=== PATIENT | male | born 1960 | race Hispanic/Latino ===

== ENCOUNTER 2019-03-25 15:55 | Inpatient (IN) | payer OTHER ==
[2019-03-25 19:07] LABS: Anion Gap 20 mmol/L (10-20); BUN (Urea Nitrogen) 93 mg/dL (8.4-25.7); Calc. Creatinine Clearance 0 mL/min (70-130); Calcium 9.2 mg/dL (7.8-10.44); Carbon Dioxide 21 mmol/L (23-31); Chloride 97 mmol/L (98-107); Estimated GFR-MDRD 4; Glucose 80 mg/dL (80-115); Potassium 5.2 mmol/L (3.5-5.1); Sodium 133 mmol/L (136-145)
[2019-03-25] MEDS ORDERED: hydrALAZINE 25 MG TAB ONE (19:36)
[2019-03-25] MEDS ORDERED: Nitroglycerin 2% Ointment 1 INCH/1 GM Packet ONE (20:37)
[2019-03-25] MEDS ORDERED: Acetaminophen 325 MG TAB PO PRN (21:51)
[2019-03-25] MEDS ORDERED: Senokot S 8.6-50 MG TAB PO PRN (21:51)
[2019-03-25] MEDS: cloNIDine 0.1 MG TAB PO PRN (22:35)
[2019-03-25 23:29] VITALS: BMI 29.8
[2019-03-26] MEDS ORDERED: Carvedilol 25 MG TAB PO SCH (01:45)
[2019-03-26] MEDS ORDERED: NIFEdipine XL 90 MG TAB PO SCH (01:45)
--- NOTE | 2019-03-26 06:48 | HP ---
CHIEF COMPLAINT: No hemodialysis access. HISTORY OF PRESENT ILLNESS: The patient is a 59-year-old male who is currently incarcerated, who normally goes to dialysis on Tuesdays, , and Saturdays and has a history of diabetes and hypertension and has had a history of kidney transplant, who presented to the hospital with complaints of having no access for dialysis. The patient states that and according to the notes, when the patient presented today for dialysis, the staff noticed that the left femoral catheter was out. There was also a concern in the note that the tip of the catheter might be missing. The patient states also that he was supposed to get dialysis on ; however, since they changed his shift from second shift to third shift, the patient ended up, I believe refusing dialysis. The patient currently denies any chest pain or shortness of breath. PAST MEDICAL HISTORY: 1. He has BPH. 2. Chronic renal impairment. 3. Diabetes. 4. He has had gout. 5. Hyperlipidemia. 6. Hypertension. 7. Neuropathy. 8. Dialysis, on kidney transplant. PAST SURGICAL HISTORY: He has had an appendectomy and corneal transplant. He has had a kidney transplant. He has had a right knee surgery. He has a left arm fistula that is currently not working. He has also had a dialysis catheter on the left chest wall in the left groin area. SOCIAL HISTORY: He does not smoke. No drug use. Alcohol use; he is currently incarcerated. ALLERGIES: HE IS ALLERGIC TO BEEF-DERIVED PRODUCTS AND PENICILLIN. MEDICATIONS: His medications are as of the following. He is on; 1. Gabapentin 300 mg at bedtime. 2. Carvedilol 6.25 b.i.d. 3. Venlafaxine 75 mg one p.o. daily. 4. Lactulose 30 mL b.i.d. 5. Omeprazole 20 mg daily. 6. Prednisone 5 mg daily. 7. Sensipar one tablet p.o. daily. 8. MiraLax 17 g p.o. daily. 9. Sevelamer 4 tabs t.i.d. FAMILY HISTORY: No history of heart disease or cancer. REVIEW OF SYSTEMS: All negative except for the ones mentioned above in the HPI. PHYSICAL EXAMINATION: VITAL SIGNS: Are as of the following. Initially when he came into the ER, his blood pressure was in the 200s, temperature of 98.1, heart rate 81, respiratory rate 16, oxygen saturation 95% on room air, blood pressure 209/100. GENERAL: He is awake, alert, and oriented x3. Does not appear in distress. HEENT: Normocephalic, atraumatic. No lymphadenopathy noted. Pupils are equal and reactive to light. CV: S1 and S2 present. No murmurs, rubs, or gallops. LUNGS: Clear to auscultation. No rhonchi or wheezes noted. ABDOMEN: Soft and nontender. Bowel sounds are present x2. EXTREMITIES: No edema. Pedal pulses are present x2. NEUROVASCULAR: No focal deficits noted. SKIN: He does have some tattooing, otherwise no significant lesions noted. LABORATORY RESULTS: As of the following. Sodium 133, potassium of 5.2, BUN 93, and creatinine of 13.09. ASSESSMENT AND PLAN: The patient is a 59-year-old male, who presents to the hospital with complaints of having no access for dialysis. 1. End-stage renal disease on dialysis, status post kidney transplant fail. We will get surgery involved to get the patient a dialysis catheter to start dialysis. Also, we will consult Nephrology. 2. Hypertension, uncontrolled. The patient states that he normally was never on any blood pressure medications since he has been on dialysis; however, for the past 2 weeks, he has noticed increased amount of blood pressure and he states that dialysis has helped him significantly. However, I am not sure how true that is. The patient states that he does not take very much significant medications at his present. 3. Deep vein thrombosis prophylaxis. We will put the patient on some subcu heparin. Job ID: [id number]
[2019-03-26] MEDS ORDERED: Loperamide HCl 2 MG CAP PO PRN (07:40)
[2019-03-26] MEDS ORDERED: Sodium Chloride 0.65% Nasal 44 ML BOT EA NARE PRN (07:40)
[2019-03-26] MEDS ORDERED: Temazepam 15 MG CAP PO PRN (07:40)
[2019-03-26] MEDS ORDERED: Cepastat Lozenges 1 LOZ PO PRN (07:40)
[2019-03-26] MEDS ORDERED: hydrALAZINE 20 MG/ML VIAL SLOW IVP PRN (07:40)
[2019-03-26] MEDS ORDERED: Labetalol HCl 100 MG/20 ML VIAL SLOW IVP PRN (07:40)
[2019-03-26] MEDS ORDERED: Ondansetron PF 4 MG/2 ML Vial IVP PRN (07:40)
[2019-03-26] MEDS ORDERED: Calcium Carbonate 500 MG ChewTAB PO PRN (07:40)
[2019-03-26] MEDS ORDERED: Diabetic Tussin 200 MG/10 ML UDCUP PO PRN (07:40)
[2019-03-26] MEDS ORDERED: Artificial Tears 18 DROP/0.9 ML EA EYE PRN (07:40)
[2019-03-26] MEDS ORDERED: Ondansetron ODT 4 MG TAB PO PRN (07:40)
[2019-03-26] MEDS ORDERED: Bisacodyl 10 MG SUPP PR PRN (07:40)
[2019-03-26] MEDS ORDERED: diphenhydrAMINE 25 MG CAP PO PRN (07:40)
[2019-03-26 08:14] LABS: #Eosinphils 0.6 thou/uL (0.0-0.7); #Lymphocytes 2.4 thou/uL (1.20-3.40); #Monocytes 1.1 thou/uL (0.11-0.59); #Neutrophils 7.4 thou/uL (1.40-6.50); %Basophils 0.4 % (0.0-1.0); %Eosinophils 5.2 % (0.0-10.0); %Monocytes 9.4 % (0.0-10.0); Hemoglobin 9.8 g/dL (14.0-18.0); Mean Corpuscular HGB CONC 33.5 g/dL (32.0-36.0); Mean Corpuscular Volume 95.5 fL (78.0-98.0); Mean Platelet Volume 5.7 fL (7.4-10.4); Platelet Count 251 thou/uL (130-400); RBC Distribution Width 12.6 % (11.5-14.5); Red Blood Cell (RBC) Count 3.07 mill/uL (4.70-6.10); White Blood Cell (WBC) Count 11.5 thou/uL (4.8-10.8)
[2019-03-26 08:53] LABS: Hep C IgG Ab Non-Reactive (NonReactive); Hep C Index 0.18 S/CO (0-0.79)
[2019-03-26] MEDS: Cinacalcet HCl 30 MG TAB PO SCH ×2 (09:37→09:46)
[2019-03-26] MEDS: predniSONE 5 MG TAB PO SCH (09:37)
[2019-03-26] MEDS: Loratadine 10 MG TAB PO SCH (09:38)
[2019-03-26] MEDS: Venlafaxine HCl XR 75 MG CAP PO SCH ×2 (09:38→09:46)
[2019-03-26] MEDS: Citrucel 500 MG TAB PO SCH ×2 (09:38→09:46)
[2019-03-26] MEDS: Sevelamer Carbonate 800 MG TAB PO SCH ×4 (09:38→18:05)
[2019-03-26] MEDS: prednisoLONE 1% Ophth Susp 5 ml Bottle EA EYE SCH ×3 (09:45→20:55)
--- NOTE | 2019-03-26 10:06 | PDOC.HOSPP ---
- Subjective Subjective: Patient seen and examined. No new complaints. No overnight events he was angry and did not talk to give any history - Objective Vital Signs & Weight: Vital Signs (12 hours) Temp Pulse Resp BP BP Pulse Ox 03/26/19 07:35 97.6 F 69 18 132/62 95 03/26/19 04:45 72 16 144/76 H 03/26/19 01:51 81 209/100 H 03/26/19 00:00 98.1 F 81 16 209/100 H 95 03/25/19 23:33 96 03/25/19 22:35 240/126 H 03/25/19 22:14 97.3 F L 80 18 240/126 H 96 Weight Weight 202 lb Result Diagrams: 03/26/19 07:55 03/25/19 18:36 EKG Reviewed by me: Yes ROS - Review of Systems All systems: All other ROS were reviewed and found negative. Constitutional: denies: fever, chills, sweats, weakness, malaise, other ENT: denies: ear pain, ear discharge, nose pain, nose discharge, nose congestion , mouth pain, mouth swelling, throat pain, throat swelling, other Respiratory: denies: cough, dry, shortness of breath, hemoptysis, SOB with excertion, pleuritic pain, sputum, wheezing, other Cardiovascular: denies: chest pain, palpitations, orthopnea, paroxysmal noc. dyspnea, edema, light headedness, other Gastrointestinal: denies: nausea, vomitting, abdominal pain, diarrhea, constipation, melena, hematochezia, other Genitourinary: denies: dysuria, frequency, incontinence, hematuria, retention, other Musculoskeletal: denies: neck pain, shoulder pain, arm pain, back pain, hand pain, leg pain, foot pain, other Skin: denies: rash, lesions, denny, bruising, other - Medication Medications: Active Medications Generic Name Dose Route Start Last Admin Trade Name Freq PRN Reason Stop Dose Admin Cinacalcet 30 mg 03/26/19 09:00 03/26/19 09:46 Sensipar PO Not Given DAILY JAYNE Clonidine 0.1 mg 03/25/19 21:52 03/25/19 22:35 Catapres PO 0.1 mg Q4H PRN Administration Blood Pressure Lactulose 20 gm 03/26/19 09:00 03/26/19 09:40 Lactulose PO Not Given BID JAYNE Loratadine 10 mg 03/26/19 09:00 03/26/19 09:38 Claritin PO 10 mg DAILY JAYNE Administration Methylcellulose 1,000 mg 03/26/19 09:00 03/26/19 09:46 Citrucel PO Not Given DAILY JAYNE Prednisolone Acetate 1 drop 03/26/19 09:00 03/26/19 09:45 Econopred Plus 1% Opth Susp EA EYE Not Given TID JAYNE Prednisone 5 mg 03/26/19 09:00 03/26/19 09:37 Prednisone PO 5 mg DAILY JAYNE Administration Sevelamer Carbonate 3,200 mg 03/26/19 08:00 03/26/19 09:42 Renvela PO Not Given TID-WM JAYNE Venlafaxine HCl 75 mg 03/26/19 09:00 03/26/19 09:46 Effexor Xr PO Not Given DAILY JAYNE Hosp A/P (1) Complications, dialysis, catheter, mechanical Code(s): T82.49XA - OTH COMPLICATION OF VASCULAR DIALYSIS CATHETER, INIT ENCNTR Status: Acute (2) Hyperkalemia Code(s): E87.5 - HYPERKALEMIA Status: Acute (3) Hypertensive urgency Code(s): I16.0 - HYPERTENSIVE URGENCY Status: Acute (4) Hyponatremia Code(s): E87.1 - HYPO-OSMOLALITY AND HYPONATREMIA Status: Acute (5) Metabolic acidosis Code(s): E87.2 - ACIDOSIS Status: Acute (6) Anemia of renal disease Code(s): N18.9 - CHRONIC KIDNEY DISEASE, UNSPECIFIED; D63.1 - ANEMIA IN CHRONIC KIDNEY DISEASE Status: Chronic (7) Anxiety and depression Code(s): F41.9 - ANXIETY DISORDER, UNSPECIFIED; F32.9 - MAJOR DEPRESSIVE DISORDER, SINGLE EPISODE, UNSPECIFIED Status: Chronic (8) BPH (benign prostatic hyperplasia) Code(s): N40.0 - BENIGN PROSTATIC HYPERPLASIA WITHOUT LOWER URINRY TRACT SYMP Status: Chronic (9) Diabetes type 2, controlled Code(s): E11.9 - TYPE 2 DIABETES MELLITUS WITHOUT COMPLICATIONS Status: Chronic (10) Dyslipidemia Code(s): E78.5 - HYPERLIPIDEMIA, UNSPECIFIED Status: Chronic (11) ESRD (end stage renal disease) on dialysis Code(s): N18.6 - END STAGE RENAL DISEASE; Z99.2 - DEPENDENCE ON RENAL DIALYSIS Status: Chronic (12) GERD (gastroesophageal reflux disease) Code(s): K21.9 - GASTRO-ESOPHAGEAL REFLUX DISEASE WITHOUT ESOPHAGITIS Status: Chronic (13) H/O kidney transplant Status: Chronic (14) Hypertension Code(s): I10 - ESSENTIAL (PRIMARY) HYPERTENSION Status: Chronic (15) Secondary hyperparathyroidism of renal origin Code(s): N25.81 - SECONDARY HYPERPARATHYROIDISM OF RENAL ORIGIN Status: Chronic - Plan old records reviewed/req nephrology consulted he will need temporary HD catheter placement and permanent dialysis catheter placement medication reviewed as below symptomatic treatment I have reconciled medication repeat labs tomorrow HD as per nephro once access achieved
[2019-03-26] MEDS ORDERED: Acetaminophen 325 MG TAB PO PRN (10:14)
[2019-03-26] MEDS: Folic Acid/Vit B Comp W-C PO SCH (11:21)
[2019-03-26] MEDS: Carvedilol 25 MG TAB PO SCH (17:58)
[2019-03-26] MEDS: cloNIDine 0.1 MG TAB PO PRN (20:23)
[2019-03-26] MEDS: Gabapentin 300 MG CAP PO SCH (20:23)
[2019-03-26] MEDS ORDERED: Prevnar 13-Val Conj/PF 0.5 ML SYRINGE IM ONE (21:00)
[2019-03-27 06:37] LABS: #Basophils 0.1 thou/uL (0.0-0.2); #Eosinphils 0.5 thou/uL (0.0-0.7); #Lymphocytes 2.4 thou/uL (1.20-3.40); #Monocytes 0.8 thou/uL (0.11-0.59); #Neutrophils 5.7 thou/uL (1.40-6.50); %Basophils 0.6 % (0.0-1.0); %Eosinophils 4.8 % (0.0-10.0); %Lymphocytes 25.7 % (21.0-51.0); %Monocytes 8.5 % (0.0-10.0); %Neutrophils 60.4 % (42.0-75.0); Hemoglobin 10.4 g/dL (14.0-18.0); Mean Corpuscular HGB CONC 33.1 g/dL (32.0-36.0); Mean Corpuscular Hemoglobin 32.4 pg (27.0-31.0); Mean Corpuscular Volume 97.9 fL (78.0-98.0); Mean Platelet Volume 5.5 fL (7.4-10.4); Platelet Count 241 thou/uL (130-400); RBC Distribution Width 12.6 % (11.5-14.5); Red Blood Cell (RBC) Count 3.19 mill/uL (4.70-6.10); White Blood Cell (WBC) Count 9.4 thou/uL (4.8-10.8)
[2019-03-27 06:46] LABS: Hemoglobin A1c 4.7 % (4.0-6.0)
[2019-03-27 06:59] LABS: ALT (SGPT) 18 U/L (8-55); AST (SGOT) 25 U/L (5-34); Albumin 3.5 g/dL (3.4-4.8); Alkaline Phosphatase 88 U/L (40-150); Anion Gap 22 mmol/L (10-20); BUN (Urea Nitrogen) 122 mg/dL (8.4-25.7); BUN/Creatinine Ratio 8.06; Bilirubin, Total 0.9 mg/dL (0.2-1.2); Calc. Creatinine Clearance 7 mL/min (70-130); Calcium 9.4 mg/dL (7.8-10.44); Carbon Dioxide 19 mmol/L (23-31); Chloride 96 mmol/L (98-107); Estimated GFR-MDRD 3; Globulin 3.4 g/dL (2.4-3.5); Glucose 91 mg/dL (80-115); Phosphorus 7.2 mg/dL (2.3-4.7); Protein, Total 6.9 g/dL (5.8-8.1); Sodium 131 mmol/L (136-145)
[2019-03-27 07:00] LABS: Phosphorus 7.4 mg/dL (2.3-4.7); Uric Acid 7.7 mg/dL (3.5-7.2)
[2019-03-27] MEDS ORDERED: Carvedilol 25 MG TAB PO SCH (08:00)
[2019-03-27] MEDS: NIFEdipine XL 90 MG TAB PO SCH (08:11)
[2019-03-27] MEDS: Loratadine 10 MG TAB PO SCH (08:11)
[2019-03-27] MEDS: predniSONE 5 MG TAB PO SCH (08:12)
[2019-03-27] MEDS: Carvedilol 25 MG TAB PO SCH ×2 (08:12→18:27)
[2019-03-27] MEDS: Sevelamer Carbonate 800 MG TAB PO SCH ×3 (08:15→18:27)
[2019-03-27] MEDS: Venlafaxine HCl XR 75 MG CAP PO SCH (08:15)
[2019-03-27] MEDS: Citrucel 500 MG TAB PO SCH (08:15)
[2019-03-27] MEDS: Folic Acid/Vit B Comp W-C PO SCH (08:15)
[2019-03-27] MEDS: prednisoLONE 1% Ophth Susp 5 ml Bottle EA EYE SCH ×2 (08:15→16:14)
[2019-03-27] MEDS: Cinacalcet HCl 30 MG TAB PO SCH (08:15)
--- NOTE | 2019-03-27 10:51 | PDOC.HOSPP ---
- Subjective Subjective: Patient seen and examined. No new complaints. No overnight events - Objective Vital Signs & Weight: Vital Signs (12 hours) Temp Pulse Resp BP Pulse Ox 03/27/19 08:11 70 03/27/19 07:59 97.6 F 70 18 201/95 H 98 03/27/19 04:00 97.5 F L 67 16 172/86 H 95 03/26/19 23:30 72 180/87 H Weight Weight 202 lb Result Diagrams: 03/27/19 06:26 03/27/19 06:26 EKG Reviewed by me: Yes ROS - Review of Systems All systems: All other ROS were reviewed and found negative. Constitutional: denies: fever, chills, sweats, weakness, malaise, other ENT: denies: ear pain, ear discharge, nose pain, nose discharge, nose congestion , mouth pain, mouth swelling, throat pain, throat swelling, other Respiratory: denies: cough, dry, shortness of breath, hemoptysis, SOB with excertion, pleuritic pain, sputum, wheezing, other Cardiovascular: denies: chest pain, palpitations, orthopnea, paroxysmal noc. dyspnea, edema, light headedness, other Gastrointestinal: denies: nausea, vomitting, abdominal pain, diarrhea, constipation, melena, hematochezia, other Genitourinary: denies: dysuria, frequency, incontinence, hematuria, retention, other Musculoskeletal: denies: neck pain, shoulder pain, arm pain, back pain, hand pain, leg pain, foot pain, other - Medication Medications: Active Medications Generic Name Dose Route Start Last Admin Trade Name Freq PRN Reason Stop Dose Admin Carvedilol 12.5 mg 03/26/19 17:00 03/27/19 08:12 Coreg PO 12.5 mg BID-WM JAYNE Administration Cinacalcet 30 mg 03/26/19 09:00 03/27/19 08:15 Sensipar PO Not Given DAILY JAYNE Clonidine 0.1 mg 03/25/19 21:52 03/26/19 20:23 Catapres PO 0.1 mg Q4H PRN Administration Blood Pressure Gabapentin 300 mg 03/26/19 21:00 03/26/19 20:23 Neurontin PO Not Given HS JAYNE Hydralazine HCl 10 mg 03/26/19 07:40 03/26/19 15:59 Apresoline SLOW IVP 10 mg Q4H PRN Administration SBP > 180 and HR < 70 Lactulose 20 gm 03/26/19 09:00 03/27/19 08:15 Lactulose PO Not Given BID [facility] Loperamide HCl 2 mg 03/26/19 07:40 03/26/19 15:47 Imodium PO 2 mg PRN PRN Administration Diarrhea/Loose Stools Loratadine 10 mg 03/26/19 09:00 03/27/19 08:11 Claritin PO 10 mg DAILY [facility] Administration Methylcellulose 1,000 mg 03/26/19 09:00 03/27/19 08:15 Citrucel PO Not Given DAILY [facility] Nifedipine 90 mg 03/27/19 09:00 03/27/19 08:11 Procardia Xl PO 90 mg DAILY [facility] Administration Pantoprazole Sodium 40 mg 03/26/19 09:00 03/27/19 08:15 Protonix PO Not Given DAILY [facility] Prednisolone Acetate 1 drop 03/26/19 09:00 03/27/19 08:15 Econopred Plus 1% Opth Susp EA EYE Not Given TID [facility] Prednisone 5 mg 03/26/19 09:00 03/27/19 08:12 Prednisone PO 5 mg DAILY [facility] Administration Sevelamer Carbonate 3,200 mg 03/26/19 08:00 03/27/19 08:15 Renvela PO Not Given TID[facility] Venlafaxine HCl 75 mg 03/26/19 09:00 03/27/19 08:15 Effexor Xr PO Not Given DAILY [facility] Vitamin B Complex/Vit C/Folic Acid 1 tab 03/26/19 09:00 03/27/19 08:15 Nephro-Anil Tablet PO Not Given DAILY [facility] - Exam NAD, awake alert Eye: PERRL, anicteric sclera ENT: normocephalic atraumatic, no oropharyngeal lesions Neck: supple, symmetric, no JVD, no Thyromegaly Heart: RRR, no murmur, no gallops, no rubs, normal peripheral pulses Respiratory: CTAB, no wheezes, no rales, no ronchi, normal chest expansion, no tachypnea, normal percussion Gastrointestinal: soft, non-tender, non-distended, normal bowel sounds, no palpable masses, no hepatomegaly, no splenomegaly, no bruit Extremities: no cyanosis, no clubbing, no edema Skin: normal turgor, no lesions, no rashes Neurological: CN's grossly intact, normal sensation to touch, no weakness, no focal deficits, no new deficit Musculoskeletal: normal tone, normal strength, no muscle wasting Psychiatric: normal affect, normal behavior, A&O x 3 Hosp A/P (1) Complications, dialysis, catheter, mechanical Code(s): T82.49XA - OTH COMPLICATION OF VASCULAR DIALYSIS CATHETER, INIT ENCNTR Status: Acute (2) Hyperkalemia Code(s): E87.5 - HYPERKALEMIA Status: Acute (3) Hypertensive urgency Code(s): I16.0 - HYPERTENSIVE URGENCY Status: Acute (4) Hyponatremia Code(s): E87.1 - HYPO-OSMOLALITY AND HYPONATREMIA Status: Acute (5) Metabolic acidosis Code(s): E87.2 - ACIDOSIS Status: Acute (6) Anemia of renal disease Code(s): N18.9 - CHRONIC KIDNEY DISEASE, UNSPECIFIED; D63.1 - ANEMIA IN CHRONIC KIDNEY DISEASE Status: Chronic (7) Anxiety and depression Code(s): F41.9 - ANXIETY DISORDER, UNSPECIFIED; F32.9 - MAJOR DEPRESSIVE DISORDER, SINGLE EPISODE, UNSPECIFIED Status: Chronic (8) BPH (benign prostatic hyperplasia) Code(s): N40.0 - BENIGN PROSTATIC HYPERPLASIA WITHOUT LOWER URINRY TRACT SYMP Status: Chronic (9) Diabetes type 2, controlled Code(s): E11.9 - TYPE 2 DIABETES MELLITUS WITHOUT COMPLICATIONS Status: Chronic (10) Dyslipidemia Code(s): E78.5 - HYPERLIPIDEMIA, UNSPECIFIED Status: Chronic (11) ESRD (end stage renal disease) on dialysis Code(s): N18.6 - END STAGE RENAL DISEASE; Z99.2 - DEPENDENCE ON RENAL DIALYSIS Status: Chronic (12) GERD (gastroesophageal reflux disease) Code(s): K21.9 - GASTRO-ESOPHAGEAL REFLUX DISEASE WITHOUT ESOPHAGITIS Status: Chronic (13) H/O kidney transplant Status: Chronic (14) Hypertension Code(s): I10 - ESSENTIAL (PRIMARY) HYPERTENSION Status: Chronic (15) Secondary hyperparathyroidism of renal origin Code(s): N25.81 - SECONDARY HYPERPARATHYROIDISM OF RENAL ORIGIN Status: Chronic - Plan old records reviewed/req today pt will get HD access and possible fistula repair medication reviewed as below symptomatic treatment HD after dialysis access
--- NOTE | 2019-03-27 11:28 | ULT ---
Exam: Vein mapping for dialysis access HISTORY: End-stage renal disease. TECHNIQUE: Multiplanar grayscale and color Doppler images were obtained in a bilateral upper extremit y venous ultrasound. Spectral analysis of the Doppler waveforms of the vessels were performed. FINDINGS: The bilateral internal jugular veins and subclavian veins are patent without evidence of th rombus. Right brachial artery 4.7 mm Right radial artery 2.6 mm Right ulnar artery 2.6 mm Left brachial artery 4.3 mm Left radial artery 2.3 mm Left ulnar artery 2.7 mm RIGHT CEPHALIC VEIN in millimeters 4.9 -- Shoulder 3.7 -- Upper arm 4.5 -- Mid upper arm 4.9-- Just proximal to the elbow 1.6 -- Just distal to the elbow 1.2 -- Forearm 2.6 -- Wrist RIGHT BASILIC VEIN in millimeters 5.1 -- Shoulder 3.2 -- Upper arm 1.5 -- Mid upper arm 1.1 -- Just proximal to the elbow 1.2 -- Just distal to the elbow 1.0 -- Forearm 1.0 -- Wrist LEFT CEPHALIC VEIN in millimeters 3.8 -- Shoulder 3.1 -- Upper arm 4.2 -- Mid upper arm 3.0 -- Just proximal to the elbow 1.0 -- Just distal to the elbow 1.1 -- Forearm 0.8 -- Wrist LEFT BASILIC VEIN in millimeters 4.5 -- Shoulder 6.0 -- Upper arm 5.1 -- Mid upper arm 5.7 -- Just proximal to the elbow 4.3 -- Just distal to the elbow 7.5 -- Forearm 8.4 -- Wrist IMPRESSION: Vein mapping for dialysis access as above
--- NOTE | 2019-03-27 11:46 | CON ---
DATE OF CONSULTATION: HISTORY OF PRESENT ILLNESS: Tello Freed is a 59-year-old prisoner, incarcerated for 8 years in [facility]. The patient prior to incarceration had a left arm fistula for dialysis. Subsequently, he underwent renal transplant. He suffered some sort of incident where the fistula had to be ligated. He has suffered rejection of his renal transplant and now has been undergoing dialysis using a catheter. They last placed a catheter in [place] a couple of weeks ago, but he states it fell out. He last dialyzed Wednesday 6 days ago. His hemoglobin is 10 and white count 9. Sodium 131, BUN 122, creatinine 15.3, and potassium 6. He, on admission, had an IV placed in his right AC. Instant report will be submitted. Ultrasound vein mapping has been ordered and is pending. ALLERGIES: PENICILLIN. SOCIAL HISTORY: Tobacco use, none. Alcohol, none even prior to incarceration. MEDICATIONS: 1. Zemplar. 2. Venlafaxine. 3. Prednisone eyedrops. 4. Omeprazole. 5. Prednisone 5 mg a day. 6. Carvedilol 6.25 mg b.i.d. 7. Gabapentin 300 mg at bedtime. 8. Fiber laxatives. 9. Lactulose. 10. Renvela 3200 mg t.i.d. 11. Claritin 10 mg a day. 12. Sensipar 30 mg a day. PAST SURGICAL HISTORY: Left Riri fistula, hemodialysis catheter, renal transplant, ligation of his left fistula, appendectomy, open infraumbilical incision, corneal transplant, and right knee surgery. PAST MEDICAL HISTORY: BPH, end-stage renal disease with renal transplant rejection on dialysis, diabetes mellitus, gout, hyperlipidemia, hypertension, and neuropathy. PHYSICAL EXAMINATION: VITAL SIGNS: 5 feet 9 inches, 202 pounds, 29 BMI, temperature 97.6, pulse 70, and blood pressure 201/95. HEAD, EYES, EARS, NOSE, AND THROAT: Unremarkable. LUNGS: Clear to auscultation. CARDIAC: Regular rate and rhythm. No murmur or gallop. ABDOMEN: Soft, nontender, protuberant, obese. Old scar, infraumbilical, from a ruptured appendicitis appendectomy. EXTREMITIES: Unremarkable. Left wrist scars x2 with soft Riri type fistula, but thrombosed at the arterial origin. LABORATORY DATA: As noted above. ASSESSMENT AND PLAN: 1. End-stage renal disease, dislodged catheter. Apparently, they had to place a groin catheter. We will plan placement of hemodialysis catheter. We will look at his intravenous jugulars, but most likely, he will require femoral vein catheter. We will plan that today since his potassium is 6, we will just place the catheter, allow him to dialyze. If he is still in the hospital, can plan placement of a left arm fistula in the next day or 2. 2. Incarceration. 3. Diabetes. 4. Hypertension. 5. Renal transplant rejection. Job ID: [id number]
[2019-03-27 12:07] LABS: HBSAg Index 0.29 S/CO (0-0.99); Hep B Core Total Ab Non-Reactive (NonReactive); Hep B Core Total Index 0.18 S/CO (0-0.79); Hep B Surf Ag Non-Reactive S/CO (NonReactive); Hep C IgG Ab Non-Reactive (NonReactive); Hep C Index 0.18 S/CO (0-0.79)
[2019-03-27 12:13] LABS: HBSAB Concentration 143.97 mIU/mL; Hep B Surf AB Reactive (NonReactive)
[2019-03-27] MEDS ORDERED: Heparin 10,000 UNITS/1 ML VIAL ONE ×2 (15:00→19:17)
[2019-03-27] MEDS ORDERED: Lidocaine 1% PF 5 ML VIAL ONE (17:09)
[2019-03-27] MEDS ORDERED: PROPOFOL 200 MG/20 ML VIAL ONE (17:09)
[2019-03-27] MEDS ORDERED: Levofloxacin 500 mg/D5W 100 ml Premix Bag ONE (17:18)
[2019-03-27] MEDS ORDERED: Fentanyl 100 MCG/2 ML VIAL ONE ×2 (19:05→20:45)
[2019-03-27] MEDS ORDERED: Lidocaine 2% PF 5 ML VIAL ONE (19:17)
[2019-03-27] MEDS ORDERED: Bupivacaine HCl 0.5%/Epinephrine 1:200,000/PF 30 ml Vial ONE (19:17)
[2019-03-27] MEDS ORDERED: Morphine Sulfate 2 MG/ML SYRINGE SLOW IVP PRN (20:28)
[2019-03-27] MEDS ORDERED: PACU-Morphine 4MG/ML VIAL SLOW IVP PRN (20:28)
[2019-03-27] MEDS ORDERED: Ondansetron HCl/PF 4 MG/2 ML Vial IVP PRN (20:28)
[2019-03-27] MEDS ORDERED: Promethazine HCl 25 MG/ML VIAL IM PRN (20:28)
[2019-03-27] MEDS ORDERED: Promethazine HCl 25 MG/ML VIAL SLOW IVP PRN (20:28)
[2019-03-27] MEDS ORDERED: HYDROmorphone 2 MG/ML VIAL SLOW IVP PRN (20:28)
[2019-03-27] MEDS ORDERED: Promethazine HCl 25 MG/ML VIAL ONE (20:32)
--- NOTE | 2019-03-27 22:47 | OP ---
DATE OF PROCEDURE: 03/27/2019 PREOPERATIVE DIAGNOSES: End-stage renal disease, incarcerated [place], dislodged left femoral vein dialysis catheter, dysfunctional fistula left arm (previous ligation in need of new fistula placement) hyperkalemia. POSTOPERATIVE DIAGNOSES: End-stage renal disease, incarcerated [place], dislodged left femoral vein dialysis catheter, dysfunctional fistula left arm (previous ligation in need of new fistula placement) hyperkalemia, occluded internal jugular veins. PROCEDURES PERFORMED: Attempted ultrasound visualization of both internal jugular veins, but J-wire was not threaded. Right femoral vein hemodialysis catheter cuffed tunneled. Left femoral vein central line (the patient has right AC IV, which we removed immediately). ANESTHESIA: General, local 0.5% Marcaine with epinephrine. DESCRIPTION OF PROCEDURE: The patient was taken to the operating room, where under general anesthesia, neck and chest, groin, thighs, lower abdomen prepared with ChloraPrep and draped in routine fashion. Ultrasound visualized the right and left internal jugular veins. I could cannulate them with trocar catheter, but J-wire was not threaded. The right femoral vein was cannulated with a trocar catheter, as well as left femoral vein. Seldinger technique used to place a triple-lumen catheter in the left femoral vein, secured with 3-0 nylon suture and sterile dressing. Each port aspirated blood and flushed with saline solution. Right femoral vein J-wire entry site was enlarged sharply. Stab incision was made over the anterior and lateral right thigh and using the tunneling device, the femoral vein catheter was tunneled between the 2 incisions, placed in the fabric cuff beneath the skin exit site. Catheter secured with 2 interrupted suture of 3-0 nylon. Small and medium size dilators were placed with J-wire and the femoral vein removed. Dilator and Peel-Away sheath placed over the J-wire into the femoral vein and J-wire and dilator removed. Catheter placed with Peel-Away sheath. Fluoroscopic catheter noted to be in good position. Subcutaneous tissue was approximated with 3-0 Monocryl, skin with subdermal 4-0 Monocryl, and Colt glue and sterile dressings applied. Catheter secured with 2 interrupted sutures of 3-0 nylon. Each port aspirated blood and flushed with saline solution and heparinized saline solution, 1000 units/mL indicating volume of the port. Job ID: [id number]
[2019-03-28] MEDS: HYDROcodone/Acetaminophen 5/325 mg Tablet PO PRN ×2 (01:30→21:34)
[2019-03-28] MEDS: prednisoLONE 1% Ophth Susp 5 ml Bottle EA EYE SCH ×5 (01:30→21:53)
[2019-03-28] MEDS: Gabapentin 300 MG CAP PO SCH ×2 (01:31→21:52)
--- NOTE | 2019-03-28 07:41 | PRG ---
DATE OF SERVICE: 03/28/2019 Tello Freed had a femoral vein hemodialysis cuff tunneled catheter placed last night. He dialyzed last night. I had him scheduled this morning at 0730 to have his left arm fistula revised to a functional fistula. However, the patient refused to sign his consent and refused to come down for surgery, was upset that he was n.p.o. after midnight. Due to his lack of cooperation and OR schedule, he is canceled for surgery today. I would recommend he dialyzed this morning, be transferred back to intermediate today with his fistula as an outpatient on an another day. I will see him as needed. His groin central line can be removed prior to discharge. Job ID: [id number]
[2019-03-28] MEDS: Sevelamer Carbonate 800 MG TAB PO SCH ×3 (08:52→19:37)
[2019-03-28] MEDS: Folic Acid/Vit B Comp W-C PO SCH (08:52)
[2019-03-28] MEDS: Cinacalcet HCl 30 MG TAB PO SCH (08:52)
[2019-03-28] MEDS: Citrucel 500 MG TAB PO SCH (08:52)
[2019-03-28] MEDS: Carvedilol 25 MG TAB PO SCH ×2 (08:52→19:37)
[2019-03-28] MEDS: NIFEdipine XL 90 MG TAB PO SCH (08:53)
[2019-03-28] MEDS: predniSONE 5 MG TAB PO SCH (08:53)
[2019-03-28] MEDS: Venlafaxine HCl XR 75 MG CAP PO SCH (08:53)
[2019-03-28] MEDS: Loratadine 10 MG TAB PO SCH (08:53)
--- NOTE | 2019-03-28 10:47 | CON ---
DATE OF CONSULTATION: REQUESTING PHYSICIAN: Sayra Moncada MD REASON FOR CONSULTATION: Need for dialysis treatment IMPRESSION: 1. End-stage renal disease, on hemodialysis, due to dislodged dialysis access. 2. Hyperkalemia in the context of end-stage renal disease and not been dialyzed. PLAN: 1. No emergent indication for dialysis, therefore, instead of putting a temporary dialysis catheter, we tried to secure a permanent dialysis catheter and possibly long time access. 2. Plan on dialyzing this patient when access is secured and we will modify the dialysis to avoid disequilibrium syndrome. 3. Further management will be dependent on the clinical course. HISTORY OF PRESENT ILLNESS: A 59-year-old incarcerated gentleman who does not have any access to get dialyzed. Therefore, the patient is here to evaluate it and access placed for the need for continued maintenance hemodialysis necessitated this Renal consultation. PAST MEDICAL HISTORY: Significant for end-stage renal disease, BPH, status post renal transplant, diabetes mellitus, dyslipidemia, hypertension. MEDICATIONS: Reviewed and as documented on [employer]. SOCIAL HISTORY: No alcohol. No tobacco. No illicit drug use. ALLERGIES: PENICILLIN. REVIEW OF SYSTEMS: As documented in the body of the history. All other systems were reviewed and found not to be significantly related to present illness. PHYSICAL EXAMINATION: GENERAL: The patient was found not to be in any obvious distress, noted with the following vital signs. VITAL SIGNS: Afebrile, temperature 97.4, pulse 68, respiratory rate 18, saturation 91%, blood pressure 139/74. HEENT: Unremarkable. Moist oral mucosa. NECK: Supple. EXTREMITIES: No peripheral edema. SKIN: No new gross rash. LYMPHATICS: No peripheral lymphadenopathy. SUMMARY: A 59-year-old gentleman with end-stage renal disease, who is in need of access. Thank you for this consultation. We will follow with you. Job ID: [id number]
--- NOTE | 2019-03-28 11:14 | DIS ---
DATE OF ADMISSION: 03/25/2019 DATE OF DISCHARGE: 03/28/2019 PRIMARY CARE PHYSICIAN: [facility] Call Admission. DISCHARGE DISPOSITION: [place]. PRIMARY DISCHARGE DIAGNOSES: 1. Mechanical complication with dialysis catheter. 2. Status post tunneled hemodialysis catheter placement. 3. Hypertensive urgency, resolved. 4. Hyperkalemia due to inadequate excretion through the kidney and inability to get dialysis. 5. Hyponatremia. 6. Metabolic acidosis. SECONDARY DISCHARGE DIAGNOSE: hypertension, history of kidney transplant , gastroesophageal reflux disease; ESRD, on hemodialysis; dyslipidemia; diabetes type 2; benign enlargement of prostate; anxiety and depression, and anemia of renal disease. PRIMARY PROCEDURE/OPERATION: The patient required tunneled hemodialysis catheter placement in the groin. Central line placement, which was removed. Hemodialysis as per Nephrology. RADIOLOGICAL INVESTIGATION: Marking ultrasound. SIGNIFICANT LABORATORY DATA: WBC 9.4, hemoglobin 10.4, platelet 241. Sodium 131, potassium 6.0, BUN 122, creatinine 15.13, uric acid 7.7, phosphorus 7.2. Liver enzymes, normal. PTH 1048. Hepatitis profile negative. Today's labs are pending. DISCHARGE MEDICATIONS: 1. Coreg 6.25 mg b.i.d. 2. Sensipar 30 mg daily. 3. Vitamin B12 1000 mcg every one month. 4. Benadryl 50 mg b.i.d. p.r.n. 5. Benzoyl peroxide topical application as directed. 6. Gabapentin 300 mg p.o. at bedtime. 7. Lactulose 20 g p.o. b.i.d. p.r.n. 8. Claritin 10 mg p.o. daily p.r.n. 9. Fiber laxative 1 g p.o. daily p.r.n. 10. Omeprazole 20 mg p.o. daily. 11. Zemplar 4 mcg p.o. three times weekly. 12. Prednisolone acetate ophthalmic drops t.i.d. as directed. 13. Prednisone 5 mg daily. 14. Renvela 3200 mg p.o. t.i.d. 15. Venlafaxine ER 75 mg p.o. daily. CONTRAINDICATION: None. CODE STATUS: Full code. INPATIENT GRADUATE FELLOW: Dr. Michelle was consulted for hemodialysis. Dr. Bailey was consulted for dialysis access. TEST RESULT PENDING ON DISCHARGE: None. ALLERGIES: CHLORHEXIDINE, IODINE, AND PENICILLIN. DISCHARGE PLAN: Posthospital, the patient will follow up with primary care physician and outpatient basis Dr. Bailey and Nephrology. HOSPITAL COURSE: A 59-year-old male, who lives at skilled nursing. He is dialysis patient. He was getting dialysis, but his dialysis access was in the groin, which came out and he was not able to get dialysis for few sessions and that is why he was brought to emergency room. This patient had hyperkalemia, metabolic acidosis, hyponatremia, all related with his inability to get dialysis for last several sessions. During this admission , we consulted Nephrology, Dr. Bailey who is the general surgeon was consulted for dialysis access. This patient had a tunneled hemodialysis catheter placement in his groin, central line was placed, which was removed. This patient was not willing to go for his AV fistula to be repaired here in the hospital. At this point, the patient is otherwise stable. He had [id number] dialysis for two times while in hospital. His abnormal electrolytes are improving. He does not have any EKG changes of hyperkalemia. As this patient no longer wants to repair his AV fistula and he is stable medically, that is why we are considering discharging him back to skilled nursing today. We are repeating BMP today. The patient will continue all his previous medication. I have seen and examined the patient at bedside today. His vitals are normal. His examination is normal. His dialysis catheter in his groin appears stable and okay. Site is clean and healthy. Job ID: [id number] MTDD
[2019-03-28 12:44] LABS: Anion Gap 15 mmol/L (10-20); BUN (Urea Nitrogen) 76 mg/dL (8.4-25.7); Calc. Creatinine Clearance 9 mL/min (70-130); Calcium 9.4 mg/dL (7.8-10.44); Carbon Dioxide 27 mmol/L (23-31); Chloride 98 mmol/L (98-107); Estimated GFR-MDRD 5; Glucose 90 mg/dL (80-115); Sodium 135 mmol/L (136-145)
[2019-03-28 12:45] LABS: Albumin 3.2 g/dL (3.4-4.8); Anion Gap 16 mmol/L (10-20); BUN (Urea Nitrogen) 76 mg/dL (8.4-25.7); BUN/Creatinine Ratio 6.57; Calc. Creatinine Clearance 9 mL/min (70-130); Calcium 9.3 mg/dL (7.8-10.44); Carbon Dioxide 27 mmol/L (23-31); Chloride 97 mmol/L (98-107); Estimated GFR-MDRD 5; Glucose 91 mg/dL (80-115); Phosphorus 7.6 mg/dL (2.3-4.7); Potassium 4.9 mmol/L (3.5-5.1); Sodium 135 mmol/L (136-145)
[2019-03-28] MEDS ORDERED: Heparin 10,000 UNITS/1 ML VIAL ONE (15:00)
--- NOTE | 2019-03-28 15:11 | PRG ---
DATE OF SERVICE: 03/28/2019 OBJECTIVE: VITAL SIGNS: The patient noted with the following vital signs; afebrile, temperature 98.4, pulse 74, respiratory rate of 16, O2 saturations 95%, blood pressure 184/85. HEENT: Unremarkable. CARDIOVASCULAR: First and second heart sounds were heard. RESPIRATORY: Clear to auscultation. DIGESTIVE: Revealed a benign abdomen. EXTREMITIES: No peripheral edema. SKIN: No new gross rash. LYMPHATICS: No peripheral lymphadenopathy. LABORATORY DATA: Laboratory investigation showed a potassium of 5.0, creatinine 11.51, BUN of 76. IMPRESSION: 1. End-stage renal disease on hemodialysis. 2. Hyperkalemia, resolved. PLAN: 1. The patient to be dialyzed today to the point of discharge and once he is transferred sure the patient can be taken out of dialysis. If he has not finished dialysis at that point and then continue with his regular Wednesday, schedule dialysis. 2. Further management to be dependent on the clinical course. Job ID: [id number]
[2019-03-28] MEDS: cloNIDine 0.1 MG TAB PO PRN (21:32)
[2019-03-28 22:45] VITALS: TEMP 98.9
[2019-03-28 23:44] VITALS: BP 141/80
[2019-03-29 05:10] LABS: Hep B Surface AG-Rflx Sendout Negative (Negative); Hepatitis B Core Total Negative (Negative); Hepatitis B Surface AB-Sendout Reactive (.)
== END 2019-03-29 01:59 | DRG 314 ==
LOC: ERS 15:55 → 2NO 22:01
PROVIDERS: ADMIT Internal Medicine; ATTEND Internal Medicine
PROC: 0JHL3XZ Insertion of Tunneled Vascular Access Device into Right Upper Leg Subcutaneous Tissue and Fascia, Percutaneous Approach (ICD-10-PCS; principal; 2019-03-27)
PROC: 06HM33Z Insertion of Infusion Device into Right Femoral Vein, Percutaneous Approach (ICD-10-PCS; 2019-03-27)
PROC: B54BZZA Ultrasonography of Right Lower Extremity Veins, Guidance (ICD-10-PCS; 2019-03-27)
PROC: 5A1D70Z Performance of Urinary Filtration, Intermittent, Less than 6 Hours Per Day (ICD-10-PCS; 2019-03-27)
PROC: 02PYX3Z Removal of Infusion Device from Great Vessel, External Approach (ICD-10-PCS; 2019-03-27)
DX: T82.42XA Displacement of vascular dialysis catheter, initial encounter (principal); N18.6 End stage renal disease; Z94.0 Kidney transplant status; E87.1 Hypo-osmolality and hyponatremia; E87.2 Acidosis; N25.81 Secondary hyperparathyroidism of renal origin; I12.0 Hypertensive chronic kidney disease with stage 5 chronic kidney disease or end stage renal disease; Y84.1 Kidney dialysis as the cause of abnormal reaction of the patient, or of later complication, without mention of misadventure at the time of the procedure; N40.0 Benign prostatic hyperplasia without lower urinary tract symptoms; M10.9 Gout, unspecified; E78.5 Hyperlipidemia, unspecified; E11.22 Type 2 diabetes mellitus with diabetic chronic kidney disease; E11.40 Type 2 diabetes mellitus with diabetic neuropathy, unspecified; E87.6 Hypokalemia; I16.0 Hypertensive urgency; D63.1 Anemia in chronic kidney disease; F41.9 Anxiety disorder, unspecified; F32.9 Major depressive disorder, single episode, unspecified; K21.9 Gastro-esophageal reflux disease without esophagitis; Z53.29 Procedure and treatment not carried out because of patient's decision for other reasons; Z90.49 Acquired absence of other specified parts of digestive tract; Z88.0 Allergy status to penicillin; Z79.52 Long term (current) use of systemic steroids; Z79.899 Other long term (current) drug therapy
CPT/HCPCS: 36415; 80048; 80053; 80069; 83036; 83970; 84100; 84550; 85025; 86704; 86705; 86706; 86707; 86803; 87340; 87350; 90935; 93970; 99284; C1752; C1769; G0257; G0365; J0360; J0670; J1644; J1956; J2001; J2550; J2704; J3010; J7512; Q0162; Q0163

== ENCOUNTER 2019-08-25 15:36 | Inpatient (IN) | payer OTHER ==
[~2019-08-25 15:36] MED LIST: Heparin 10,000 UNITS/1 ML VIAL ONE
[2019-08-25 16:48] LABS: #Basophils 0.1 thou/uL (0.0-0.2); #Eosinphils 2.9 thou/uL (0.0-0.7); #Lymphocytes 3.1 thou/uL (1.20-3.40); #Monocytes 0.6 thou/uL (0.11-0.59); #Neutrophils 5.6 thou/uL (1.40-6.50); %Basophils 0.6 % (0.0-1.0); %Eosinophils 23.3 % (0.0-10.0); %Lymphocytes 25.3 % (21.0-51.0); %Monocytes 4.6 % (0.0-10.0); %Neutrophils 46.1 % (42.0-75.0); Hemoglobin 11.8 g/dL (14.0-18.0); Mean Corpuscular HGB CONC 32.9 g/dL (32.0-36.0); Mean Corpuscular Hemoglobin 30.8 pg (27.0-31.0); Mean Corpuscular Volume 93.6 fL (78.0-98.0); Mean Platelet Volume 5.2 fL (7.4-10.4); Platelet Count 235 thou/uL (130-400); Red Blood Cell (RBC) Count 3.83 mill/uL (4.70-6.10); White Blood Cell (WBC) Count 12.2 thou/uL (4.8-10.8)
--- NOTE | 2019-08-25 16:50 | RAD ---
EXAM: Single view of the chest HISTORY: Hemodialysis patient with nonworking dialysis graft. COMPARISON: None FINDINGS: Single view of the chest shows a normal sized cardiomediastinal silhouette. There is no gretchen dence of consolidation, mass, or pleural effusion. Degenerative changes are seen in the spine. IMPRESSION: No evidence of acute cardiopulmonary disease
[2019-08-25] MEDS ORDERED: Lidocaine 1% PF 5 ML VIAL ONE ×2 (16:55→17:08)
[2019-08-25 17:14] LABS: ALT (SGPT) 10 U/L (8-55); AST (SGOT) 15 U/L (5-34); Albumin 4.1 g/dL (3.4-4.8); Alkaline Phosphatase 91 U/L (40-110); Anion Gap 22 mmol/L (10-20); BUN (Urea Nitrogen) 88 mg/dL (8.4-25.7); Calc. Creatinine Clearance 0 mL/min (70-130); Calcium 10.2 mg/dL (7.8-10.44); Carbon Dioxide 26 mmol/L (23-31); Chloride 92 mmol/L (98-107); Estimated GFR-MDRD 3; Globulin 3.9 g/dL (2.4-3.5); Glucose 88 mg/dL (80-115); Magnesium 3.2 mg/dL (1.6-2.6); Sodium 133 mmol/L (136-145)
[2019-08-25 17:24] LABS: Potassium 7.4 mmol/L (3.5-5.1)
[2019-08-25] MEDS ORDERED: Dextrose 50% Abboject 50 ML SYRINGE ONE ×2 (17:29→17:31)
[2019-08-25] MEDS ORDERED: Insulin Regular 300 UNITS/3 ML VIAL ONE (17:29)
[2019-08-25] MEDS ORDERED: Calcium Gluc 4.6 MEQ/10 ML (100 MG/ML) ONE ×2 (17:29→17:32)
[2019-08-25] MEDS ORDERED: Sodium Bicarb 50 MEQ/50 ML VIAL ONE (17:34)
[2019-08-25] MEDS ORDERED: Sodium Bicarb 50 MEQ/50 ML Abboject 8.4% SYRINGE ONE (17:34)
[2019-08-25] MEDS ORDERED: Sodium Bicarbonate 2.5 MEQ/5 ML VIAL ONE ×2 (17:34→17:59)
[2019-08-25] MEDS ORDERED: Albuterol Sulfate 2.5 mg/3 ml Neb ONE (17:54)
[2019-08-25] MEDS ORDERED: Racepinephrine 2.25% 0.5 ML NEB ONE (17:54)
[2019-08-25] MEDS ORDERED: Fentanyl 100 MCG/2 ML VIAL ONE (18:06)
[2019-08-25] MEDS ORDERED: Bacitracin 1 PK ONE (18:24)
--- NOTE | 2019-08-25 20:55 | PDOC.EVN ---
Event Note - Event Note Event Note: Patient admitted for hyperkalemia, needs new tunneled HD cath, Dr. Zhao dialyzing. #[id number]
[2019-08-25] MEDS ORDERED: diphenhydrAMINE 50 MG/ML VIAL IVP PRN (21:22)
--- NOTE | 2019-08-25 22:12 | HP ---
PRIMARY CARE PHYSICIAN: [facility]. CHIEF COMPLAINT: Body aches and nausea. HISTORY OF PRESENT ILLNESS: This is a 59-year-old male with a history of diabetes, hypertension, and end-stage renal disease, on dialysis. He had a cuffed dialysis catheter placed previously in the right femoral vein by Dr. Bailey earlier in the year. Apparently, per the ER report and the patient's reports, the catheter had not been working since Wednesday; however, they just stopped doing dialysis. Upon reviewing the notes from the correctional facility, they say that they had to stop doing dialysis on Wednesday because his catheter cuff was out and he refused to go for a catheter exchange at that time. Today, there was noted to be purulent and brown-green drainage on the dressing around the catheter insertion site as well. This was not communicated to Dr. Zhao. The patient is currently getting dialysis through that old catheter. He has had no adverse reactions at this time, although they were having to use a very slow rate. The patient was noted to have hyperkalemia in the emergency room, about 7 with peaked T-waves. He was given sodium bicarbonate, albuterol, calcium gluconate, and dextrose and insulin in the emergency room to stabilize this and then he went for urgent dialysis. There was an attempt done to do a left-sided femoral temporary hemodialysis catheter placement. However, the wire could not be run. There was also a concern with the injury site being too high above the inguinal ligament, so Surgery, Dr. Hood, did evaluate the patient and made sure that there was no significant injury from this approach. He determined that no significant injury had been done, but they were unable to place a new catheter. The patient himself reports that he has been feeling achy and bad for the last few days to a week and that he has been retching, but not vomiting anything. He has been having some abdominal pain. This was preceding catheter attempt and has no change since then. He is asking to eat something right now though and says he is hungry. REVIEW OF SYSTEMS: CONSTITUTIONAL: No fever. He has had some chills. He was afebrile on presentation. EYES: No vision changes. ENT: He has had some congestion. No sore throat. CARDIOVASCULAR: Patient reports that he has intermittent chest pain chronically. Nothing new or different. PULMONARY: He has had some cough. No wheezing or shortness of breath. GASTROINTESTINAL: He has had some generalized abdominal pain with his generalized body aches and some retching, but no vomiting. He states he has had some constipation as well. No diarrhea. GENITOURINARY: He does produce some urine and has had no hematuria, but states he has chronically painful urination. This is not changed recently either. MUSCULOSKELETAL: Generalized muscle aches and body aches. SKIN: No rashes or other lesions that he has noticed. NEUROLOGIC: No changes or focal neurologic deficits that he has noticed. PAST MEDICAL HISTORY: 1. Diabetes mellitus type 2, diet controlled, since the renal failure. 2. Hypertension. 3. Hyperlipidemia. 4. Benign prostatic hyperplasia. 5. End-stage renal disease, on dialysis. PAST SURGICAL HISTORY: 1. Appendectomy. 2. Corneal transplant. 3. Kidney transplant. 4. Right knee surgery. 5. Left arm fistula, not working. SOCIAL HISTORY: No tobacco or illicit drugs. Previous alcohol use, but none currently. He is currently incarcerated. ALLERGIES: HE IS ALLERGIC TO BEEF-DERIVED PRODUCTS AND PENICILLIN. MEDICATIONS: 1. Amlodipine 10 mg daily. 2. Carvedilol 6.25 mg twice a day. 3. Cyanocobalamin 1000 mcg intramuscular every 4 weeks. 4. Fiber laxatives 1000 mg daily. 5. Gabapentin 300 mg at night. 6. Clonidine as needed for high blood pressure. 7. Lactulose 30 mL orally twice a day. 8. Nephro-Anil tablet 1 tab orally daily. 9. Omeprazole 20 mg daily. 10. Sensipar 30 mg daily. 11. Sevelamer 4 tablets orally 3 times a day. 12. Tolnaftate cream twice daily. 13. Venlafaxine 75 mg daily. FAMILY HISTORY: No history of heart disease or cancer. PHYSICAL EXAMINATION: VITAL SIGNS: Blood pressure 161/73, pulse 76, respirations are 20, temperature 98.2, O2 saturation 98% on room air. GENERAL: This is a well-developed, well-nourished male, in no acute distress, lying on his side, sleeping. When I wake him up, he does complain of generalized pain, though he does not appear to be in distress and he made a couple of retching noises and then went back to sleep. He did ask if the kitchen was open, if they could cook him some hot food. HEENT: Pupils are equal, round, and reactive to light. Oropharynx is clear without lesions, erythema, or exudate. NECK: Supple. No lymphadenopathy. No thyroid nodules or enlargement. HEART: Regular rate and rhythm. No murmurs, rubs, or gallops. LUNGS: Clear to auscultation bilaterally. No wheezes, crackles, or rhonchi. ABDOMEN: Soft. Mild tenderness to palpation in mid epigastric region. No hepatosplenomegaly. No masses. No guarding or rebound tenderness. Normoactive bowel sounds. EXTREMITIES: No clubbing, cyanosis, or edema. SKIN: No rashes or lesions noted. NEUROLOGIC: He seems to be moving all extremities equally and no facial droop. PSYCHIATRIC: Alert and oriented x3. Normal mood and affect. LABORATORY DATA: CBC with a white blood cell count of 12,000, hemoglobin of 11.8, hematocrit 35.8, platelet count 235. Complete metabolic panel is notable for sodium of 133, a potassium of 7.4, chloride of 92, BUN of 88, creatinine of 17.65, and magnesium of 3.2. The rest was normal. IMAGING STUDIES: Chest x-ray; I did review the chest x-ray done in the emergency room along with the radiologist's report. It does show no evidence of acute cardiopulmonary disease. ASSESSMENT: 1. Hyperkalemia. The patient is getting urgent dialysis, will not be able to use his dialysis catheter long-term. However, since he has already started it, I talked to Dr. Zhao, and we will continue and see if we get his potassium down with his dialysis episode. If the potassium remains up tomorrow, then we may need to have a temporary hemodialysis catheter put in over the weekend. Otherwise, we can wait for Wednesday when Dr. Bailey returns and consult him for a tunneled hemodialysis catheter. 2. End-stage renal disease, on dialysis. Needs a new tunneled hemodialysis catheter. 3. Generalized body aches and retching. This may be related to patient's lack of dialysis for the last week. By the present report, he refused to have the catheter changed out with the cuff slid out on last Wednesday. He has not had any actual fevers. His white count is a little elevated, so we will go ahead and get blood cultures and make certain he is not bacteremic and we will watch his vital signs closely. 4. Hypertension. The patient is currently very hypertensive. We see if removal of some fluid with dialysis will improve that. We will also resume his home medications. 5. Diabetes mellitus type 2. He likely does not need any medication with his renal failure, but we will check fingerstick blood sugars before meals and at bedtime and put him on a light insulin sliding scale and see if he ends up needing some medication. 6. Gastrointestinal prophylaxis. Put the patient on his PPI daily. 7. Deep venous thrombosis prophylaxis. Put the patient on heparin subcu. 8. Code status. The patient is a full code. Job ID: [id number]
[2019-08-25] MEDS ORDERED: HumaLOG 300 UNITS/3 ML VIAL SC PRN ×2 (23:49)
[2019-08-25] MEDS ORDERED: Guaifenesin DM 100-10/5 ML UDCUP PO PRN (23:49)
[2019-08-25] MEDS ORDERED: Dextrose 5% in Water 1,000 ML IV PRN (23:49)
[2019-08-25] MEDS ORDERED: Senokot S 8.6-50 MG TAB PO PRN (23:49)
[2019-08-25] MEDS ORDERED: Acetaminophen 325 MG TAB PO PRN (23:49)
[2019-08-25] MEDS ORDERED: Ondansetron ODT 4 MG TAB PO PRN (23:49)
[2019-08-25] MEDS ORDERED: Acetaminophen 650 MG Suppository PR PRN (23:49)
[2019-08-25] MEDS ORDERED: Dextrose 50% Abboject 50 ML SYRINGE SLOW IVP PRN (23:49)
[2019-08-25] MEDS ORDERED: Ondansetron PF 4 MG/2 ML Vial IVP PRN (23:49)
[2019-08-25] MEDS ORDERED: Heparin 5,000 UNITS/ML VIAL SC SCH (23:59)
[2019-08-25] MEDS ORDERED: Carvedilol 6.25 MG TAB PO SCH (23:59)
[2019-08-25] MEDS ORDERED: Gabapentin 300 MG CAP PO SCH (23:59)
[2019-08-26 02:36] VITALS: BMI 28.5
[2019-08-26 04:36] LABS: #Basophils 0.1 thou/uL (0.0-0.2); #Lymphocytes 2.7 thou/uL (1.20-3.40); #Monocytes 0.8 thou/uL (0.11-0.59); #Neutrophils 6.4 thou/uL (1.40-6.50); %Basophils 0.6 % (0.0-1.0); %Eosinophils 9.4 % (0.0-10.0); %Lymphocytes 24.5 % (21.0-51.0); %Monocytes 7.5 % (0.0-10.0); %Neutrophils 58.1 % (42.0-75.0); Hemoglobin 10.6 g/dL (14.0-18.0); Mean Corpuscular HGB CONC 32.9 g/dL (32.0-36.0); Mean Corpuscular Volume 94.2 fL (78.0-98.0); Mean Platelet Volume 5.1 fL (7.4-10.4); Platelet Count 183 thou/uL (130-400); Red Blood Cell (RBC) Count 3.43 mill/uL (4.70-6.10)
[2019-08-26 04:56] LABS: Anion Gap 21 mmol/L (10-20); BUN (Urea Nitrogen) 46 mg/dL (8.4-25.7); Calc. Creatinine Clearance 8 mL/min (70-130); Calcium 9.4 mg/dL (7.8-10.44); Carbon Dioxide 26 mmol/L (23-31); Chloride 96 mmol/L (98-107); Estimated GFR-MDRD 5; Glucose 121 mg/dL (80-115); Potassium 5.1 mmol/L (3.5-5.1); Sodium 138 mmol/L (136-145)
[2019-08-26] MEDS ORDERED: Sodium Chloride 0.9% 10 ML ONE (08:20)
[2019-08-26] MEDS: Cinacalcet HCl 30 MG TAB PO SCH (09:13)
[2019-08-26] MEDS: Amlodipine 10 MG TAB PO SCH (09:13)
[2019-08-26] MEDS: Venlafaxine HCl XR 75 MG CAP PO SCH (09:14)
[2019-08-26] MEDS: Citrucel 500 MG TAB PO SCH (09:15)
[2019-08-26] MEDS: Carvedilol 6.25 MG TAB PO SCH ×2 (09:16→20:15)
[2019-08-26] MEDS: Heparin 5,000 UNITS/ML VIAL SC SCH ×3 (09:20→20:15)
[2019-08-26] MEDS ORDERED: Heparin 10,000 UNITS/1 ML VIAL ONE (11:47)
--- NOTE | 2019-08-26 12:13 | CON ---
DATE OF CONSULTATION: 08/26/2019 CONSULTING PHYSICIAN: Dr. Justin. REASON FOR CONSULTATION: End-stage renal disease. REASON FOR ADMISSION: Bodyache. HISTORY OF PRESENT ILLNESS: This is a 59-year-old male with history of end-stage renal disease, type 2 diabetes, hypertension, could not get dialysis for last few days, came to the hospital ED from [facility]. He is not feeling well. No chest pain or palpitation. PAST MEDICAL HISTORY: Positive for type 2 diabetes, hypertension, hyperlipidemia, BPH, end-stage renal disease. PAST SURGICAL HISTORY: Appendectomy, corneal transplant, kidney transplant, right knee surgery, and left arm fistula. HOME MEDICATIONS: 1. Amlodipine. 2. Carvedilol. 3. Cyanocobalamin. 4. Fiber laxative. 5. Gabapentin. 6. Clonidine. 7. Lactulose. 8. Nephro-Anil. 9. Omeprazole. 10. Sensipar. 11. Sevelamer. 12. Tolnaftate. 13. Venlafaxine. ALLERGIES: TO BEEF-DERIVED PRODUCTS AND PENICILLIN. SOCIAL HISTORY: No smoking, alcohol, or illicit drugs abuse. FAMILY HISTORY: No history of kidney disease. REVIEW OF SYSTEMS: CONSTITUTIONAL: Negative for weight loss or gain, ability to conduct usual activities. SKIN: Negative for rash, itching. EYES: Negative for double vision, pain. ENT/MOUTH: Negative for nose bleeding, neck stiffness, pain, tenderness. CARDIOVASCULAR: Negative for palpitations, dyspnea on exertion, orthopnea. RESPIRATORY: Negative for shortness of breath, wheezing, cough, hemoptysis, fever or night sweats. GASTROINTESTINAL: Negative for poor appetite, abdominal pain, heartburn, nausea, vomiting, constipation, or diarrhea. GENITOURINARY: Negative for urgency, frequency, dysuria, nocturia. MUSCULOSKELETAL: Negative for pain, swelling. NEUROLOGIC/PSYCHIATRIC: Negative for anxiety, depression. ALLERGY/IMMUNOLOGIC: Negative for skin rash, bleeding tendency. PHYSICAL EXAMINATION: GENERAL: This is a well-built male, in no apparent distress. VITAL SIGNS: Temperature 98.8, pulse 75, respiratory rate 18, and blood pressure 137/85. HEENT: Atraumatic, normocephalic. Oral mucosa is moist. NECK: Supple. CARDIOVASCULAR: S1 and S2. Rate and rhythm regular. RESPIRATORY: Clear. GASTROINTESTINAL: Abdomen is soft. MUSCULOSKELETAL: 1+ edema. DERMATOLOGIC: No skin rash. NEUROLOGIC: Alert and awake. PSYCHIATRIC: Mood and affect normal. LABORATORY DATA: Hemoglobin is 11.8. Potassium is 7.4, BUN is 88, and creatinine is 7.9. ASSESSMENT AND PLAN: 1. End-stage renal disease. Plan to have emergent dialysis. 2. Edema, controlled. 3. Hypertension. 4. Hyperkalemia, better. 5. Hyponatremia. Limit fluid intake. 6. Noncompliance, consult. Dialysis access, might need a revision of the dialysis access. We will consult Surgery on Wednesday. We will follow. Thank you for the consult. Job ID: [id number]
--- NOTE | 2019-08-26 13:12 | PDOC.HOSPP ---
- Subjective Encounter Date: 08/26/19 (f/u hyperkalemia) Encounter Time: 13:10 Subjective: Pt c/o difficulty breathing. Also c/o burning sensation in chest - states he's had this in the past. He reports taking benadryl at the correctional facility prn for anxiety, has not been ordered here. C/o his eyes burning. RN reports pt is selective about medication s- has been refusing some. - Objective Vital Signs & Weight: Vital Signs (12 hours) Temp Pulse Resp BP BP BP Pulse Ox 08/26/19 11:53 96.9 F L 69 16 128/66 95 08/26/19 09:16 177/84 H 08/26/19 09:13 75 177/84 H 08/26/19 08:00 98.2 F 74 18 171/84 H 97 08/26/19 03:36 98.8 F 75 17 137/85 97 08/26/19 01:23 188/79 H Weight Weight 193 lb 6.4 oz I&O: 08/25/19 08/26/19 08/27/19 06:59 06:59 06:59 Intake Total 240 Balance 240 Result Diagrams: 08/26/19 04:06 08/26/19 04:06 EKG Reviewed by me: Yes (tele - sinus 70-80's) Hospitalist ROS - Medication Medications: Active Medications Generic Name Dose Route Start Last Admin Trade Name Freq PRN Reason Stop Dose Admin Amlodipine Besylate 10 mg 08/26/19 09:00 08/26/19 09:13 Norvasc PO 10 mg DAILY JAYNE Administration Carvedilol 6.25 mg 08/26/19 09:00 08/26/19 09:16 Coreg PO 6.25 mg BID JAYNE Administration Cinacalcet 30 mg 08/26/19 09:00 08/26/19 09:13 Sensipar PO 30 mg DAILY JAYNE Administration Heparin Sodium (Porcine) 5,000 units 08/26/19 09:00 08/26/19 09:20 Heparin SC 5,000 units TID JAYNE Administration Lactulose 20 gm 08/26/19 09:00 08/26/19 09:19 Lactulose PO Not Given BID JAYNE Methylcellulose 1,000 mg 08/26/19 09:00 08/26/19 09:15 Citrucel PO Not Given DAILY JAYNE Pantoprazole Sodium 40 mg 08/26/19 09:00 08/26/19 09:14 Protonix PO Not Given DAILY JAYNE Venlafaxine HCl 75 mg 08/26/19 09:00 08/26/19 09:14 Effexor Xr PO Not Given DAILY JAYNE - Exam General Appearance: NAD Heart: RRR Heart - other findings: 3/6 AUBREE Respiratory: no wheezes, no rales, no ronchi Respiratory - other findings: decreased breath sounds at bases, fair air movement Gastrointestinal: soft, normal bowel sounds Gastrointestinal - other findings: ttp along the right side, abd soft, no palpable abnormality Psychiatric: normal affect, normal behavior Hosp A/P (1) Hyperkalemia Code(s): E87.5 - HYPERKALEMIA Status: Resolved (2) Complications, dialysis, catheter, mechanical Code(s): T82.49XA - OTH COMPLICATION OF VASCULAR DIALYSIS CATHETER, INIT ENCNTR Status: Acute Qualifiers: Encounter type: subsequent encounter Qualified Code(s): T82.49XD - Other complication of vascular dialysis catheter, subsequent encounter (3) Eye pain Code(s): H57.10 - OCULAR PAIN, UNSPECIFIED EYE Status: Acute (4) Diabetes type 2, controlled Code(s): E11.9 - TYPE 2 DIABETES MELLITUS WITHOUT COMPLICATIONS Status: Chronic Qualifiers: Diabetes mellitus terminal gauger supervisor insulin use: without longterm use (5) Dyslipidemia Code(s): E78.5 - HYPERLIPIDEMIA, UNSPECIFIED Status: Chronic (6) ESRD (end stage renal disease) on dialysis Code(s): N18.6 - END STAGE RENAL DISEASE; Z99.2 - DEPENDENCE ON RENAL DIALYSIS Status: Chronic (7) GERD (gastroesophageal reflux disease) Code(s): K21.9 - GASTRO-ESOPHAGEAL REFLUX DISEASE WITHOUT ESOPHAGITIS Status: Chronic (8) Hypertension Code(s): I10 - ESSENTIAL (PRIMARY) HYPERTENSION Status: Chronic - Plan Appreciate Nephrology consult - dialysis today - continue renal meds - needs Gen Surgery consult for dialysis cath placement HTN - continue meds Eye pain - uncertain etiology - prn artificial tears GERD - PPI DM 2 - blood sugar slightly elevated, refusing finger sticks dvt prophy - heparin gi prophy - PPI code status full reviewed plan of care with patient, no questions or further needs at end of eval
[2019-08-26] MEDS ORDERED: Artificial Tear Sol 15 ML BOT EA EYE PRN (13:15)
--- NOTE | 2019-08-26 13:55 | PRG ---
DATE OF SERVICE: 08/26/2019 SUBJECTIVE: Patient was seen and examined at bedside and overnight events noted. Patient denies any shortness of breath or chest pain or palpitation. No history of nausea or vomiting or diarrhea or fever or chills or cramps. OBJECTIVE: GENERAL: This is a well-built male, in no apparent distress. VITAL SIGNS: Temperature 96.9. Heart rate 69. Respiratory rate 16. Blood pressure 128/66. HEENT: Atraumatic, normocephalic. Oral mucosa is moist NECK: Supple. CARDIOVASCULAR: S1, S2 heard. Rate and rhythm regular. RESPIRATORY: Clear to auscultation. GASTROINTESTINAL: Abdomen is soft. MUSCULOSKELETAL: No tenderness. No edema. DERMATOLOGIC: No skin rash. NEUROLOGIC: Alert and awake and oriented X3. No focal neurologic deficits. Moving all the extremities. PSYCHIATRIC: Mood and affect normal. LABORATORY DATA: Potassium 5.1, BUN is 46, creatinine 11.3. ASSESSMENT AND PLAN: 1. End-stage renal disease. We will continue on dialysis as tolerated. Plan to have 3 hours of dialysis at present and continue dialysis Wednesday, , and Wednesday. 2. Hyperkalemia, much better. We will have another session of dialysis. 3. Hypertension, stable. 4. Hyponatremia. 5. Edema. We will remove fluid. Dialysis access issues; it seems like he is having issues with his right femoral dialysis access, which will be checked by Surgery. We will consult Surgery on Wednesday. Also, he wants to look into his fistula which was working before, but nonfunctional now. We will have Surgery look into his catheter and fistula to figure out further plan. We will consult on Wednesday. Job ID: [id number]
[2019-08-26] MEDS ORDERED: Sodium Bicarb 50 MEQ/50 ML Abboject 8.4% SYRINGE ONE (14:50)
[2019-08-26] MEDS ORDERED: Dextrose 50% Abboject 50 ML SYRINGE ONE (14:50)
[2019-08-26] MEDS ORDERED: Calcium Chloride 1 GM/10 ML Abboject SYRINGE ONE (14:50)
[2019-08-26] MEDS ORDERED: EPINEPHrine 1 MG/10 ML Abboject SYRINGE ONE (14:50)
[2019-08-26] MEDS: Sevelamer Carbonate 800 MG TAB PO SCH (17:19)
[2019-08-26] MEDS: diphenhydrAMINE 25 MG CAP PO PRN (17:22)
[2019-08-26] MEDS: Gabapentin 300 MG CAP PO SCH (20:15)
[2019-08-27] MEDS: Venlafaxine HCl XR 75 MG CAP PO SCH (08:41)
[2019-08-27] MEDS: Carvedilol 6.25 MG TAB PO SCH ×2 (08:42→21:50)
[2019-08-27] MEDS: Cinacalcet HCl 30 MG TAB PO SCH (08:42)
[2019-08-27] MEDS: Amlodipine 10 MG TAB PO SCH (08:42)
[2019-08-27] MEDS: Sevelamer Carbonate 800 MG TAB PO SCH ×3 (08:42→17:13)
[2019-08-27] MEDS: Citrucel 500 MG TAB PO SCH (08:42)
[2019-08-27] MEDS: Heparin 5,000 UNITS/ML VIAL SC SCH ×3 (08:43→23:18)
[2019-08-27] MEDS ORDERED: Cyanocobalamin 1000 MCG/ML VIAL IM SCH (09:00)
--- NOTE | 2019-08-27 10:18 | PDOC.HOSPP ---
- Subjective Encounter Date: 08/27/19 (f/u hyperkalemia) Encounter Time: 10:16 Subjective: Pt c/o substernal chest pain - states intermittent and currently present, lasts about an hour, with deep breaths it radiates to his back. He denies any n/v, does have some dizziness. Reports cardiac evaluation in past for murmur still not opening eyes - states he has not received the eye drops - Objective Vital Signs & Weight: Vital Signs (12 hours) Temp Pulse Resp BP BP Pulse Ox 08/27/19 08:42 96 08/27/19 07:18 98.1 F 75 18 167/81 H 96 08/27/19 05:38 96 08/27/19 03:41 97.9 F 70 17 109/53 L 98 Weight Weight 182 lb 15.739 oz I&O: 08/26/19 08/27/19 08/28/19 06:59 06:59 06:59 Intake Total 240 730 Output Total 1500 Balance 240 -770 Result Diagrams: 08/26/19 04:06 08/26/19 04:06 Additional Labs: Accuchecks 08/26/19 17:28 POC Glucose 87 EKG Reviewed by me: Yes (tele - sinus 60-70's) Hospitalist ROS - Medication Medications: Active Medications Generic Name Dose Route Start Last Admin Trade Name Sam PRN Reason Stop Dose Admin Amlodipine Besylate 10 mg 08/26/19 09:00 08/27/19 08:42 Norvasc PO 10 mg DAILY JAYNE Administration Carvedilol 6.25 mg 08/26/19 09:00 08/27/19 08:42 Coreg PO 6.25 mg BID JAYNE Administration Cinacalcet 30 mg 08/26/19 09:00 08/27/19 08:42 Sensipar PO 30 mg DAILY JAYNE Administration Cyanocobalamin 1,000 mcg 08/27/19 09:00 08/27/19 08:44 Vitamin B-12 IM 1,000 mcg Q28D JAYNE Administration Diphenhydramine HCl 25 mg 08/26/19 12:32 08/26/19 17:22 Benadryl PO 25 mg Q6H PRN Administration Anxiety/Restlessness/Sleep Gabapentin 300 mg 08/26/19 21:00 08/26/19 20:15 Neurontin PO Not Given HS JAYNE Heparin Sodium (Porcine) 5,000 units 08/26/19 09:00 08/27/19 08:43 Heparin SC Not Given TID JAYNE Lactulose 20 gm 08/26/19 09:00 08/27/19 08:43 Lactulose PO Not Given BID JAYNE Methylcellulose 1,000 mg 08/26/19 09:00 08/27/19 08:42 Citrucel PO 1,000 mg DAILY JAYNE Administration Pantoprazole Sodium 40 mg 08/26/19 09:00 08/27/19 08:42 Protonix PO 40 mg DAILY JAYNE Administration Sevelamer Carbonate 1,600 mg 08/26/19 17:00 08/27/19 08:42 Renvela PO 1,600 mg TID-WM JAYNE Administration Venlafaxine HCl 75 mg 08/26/19 09:00 08/27/19 08:41 Effexor Xr PO Not Given DAILY JAYNE - Exam General Appearance: NAD Heart: RRR Heart - other findings: 3/6 AUBREE throughout, no ttp along sternum Respiratory: CTAB, no wheezes, no rales, no ronchi Gastrointestinal: soft, non-tender, non-distended Musculoskeletal: normal tone, normal strength Psychiatric: normal affect Hosp A/P (1) Chest pain Code(s): R07.9 - CHEST PAIN, UNSPECIFIED Status: Acute Qualifiers: Chest pain type: unspecified Qualified Code(s): R07.9 - Chest pain, unspecified (2) Hyperkalemia Code(s): E87.5 - HYPERKALEMIA Status: Resolved (3) Complications, dialysis, catheter, mechanical Code(s): T82.49XA - OTH COMPLICATION OF VASCULAR DIALYSIS CATHETER, INIT ENCNTR Status: Acute Qualifiers: Encounter type: subsequent encounter Qualified Code(s): T82.49XD - Other complication of vascular dialysis catheter, subsequent encounter (4) Eye pain Code(s): H57.10 - OCULAR PAIN, UNSPECIFIED EYE Status: Acute (5) Diabetes type 2, controlled Code(s): E11.9 - TYPE 2 DIABETES MELLITUS WITHOUT COMPLICATIONS Status: Chronic Qualifiers: Diabetes mellitus assistant terminal manager insulin use: without assistant terminal manager use (6) Dyslipidemia Code(s): E78.5 - HYPERLIPIDEMIA, UNSPECIFIED Status: Chronic (7) ESRD (end stage renal disease) on dialysis Code(s): N18.6 - END STAGE RENAL DISEASE; Z99.2 - DEPENDENCE ON RENAL DIALYSIS Status: Chronic (8) GERD (gastroesophageal reflux disease) Code(s): K21.9 - GASTRO-ESOPHAGEAL REFLUX DISEASE WITHOUT ESOPHAGITIS Status: Chronic (9) Hypertension Code(s): I10 - ESSENTIAL (PRIMARY) HYPERTENSION Status: Chronic - Plan Chest pain in high risk patient - chewable aspirin - ecg, troponin x 3, echo - Cardiology consult as pt will need surgery for dialysis cath placement - ntg now and monitor pain - continue tele Appreciate Nephrology consult - dialysis yesterday, hyperkalemia resolved - continue renal meds - needs Gen Surgery consult for dialysis cath placement HTN - continue meds Eye pain - uncertain etiology - schedule artificial tears and monitor GERD - PPI DM 2 - blood sugar slightly elevated, refusing finger sticks dvt prophy - heparin gi prophy - PPI code status full reviewed plan of care with patient, no questions or further needs at end of eval
[2019-08-27] MEDS: Nitroglycerin 0.4 MG TAB (25 Tab Bottle) SL PRN (10:26)
[2019-08-27] MEDS ORDERED: Aspirin Chewable 81 MG TAB PO SCH (10:30)
[2019-08-27 12:02] LABS: Troponin I 0.054 ng/mL (< 0.028)
[2019-08-27] MEDS: Artificial Tear Sol 15 ML BOT EA EYE SCH ×3 (12:15→21:52)
[2019-08-27 13:51] LABS: Troponin I 0.067 ng/mL (< 0.028)
--- NOTE | 2019-08-27 14:05 | PRG ---
DATE OF SERVICE: 08/27/2019 SUBJECTIVE: Patient was seen and examined at bedside and overnight events noted. Patient denies any shortness of breath or chest pain or palpitation. No history of nausea or vomiting or diarrhea or fever or chills or cramps. OBJECTIVE: GENERAL: This is a well-built male, in no apparent distress. VITAL SIGNS: Temperature 98.1. Heart rate 64. Respiratory rate 15. Blood pressure 149/77. HEENT: Atraumatic, normocephalic. Oral mucosa is moist NECK: Supple. CARDIOVASCULAR: S1, S2 heard. Rate and rhythm regular. RESPIRATORY: Clear to auscultation. GASTROINTESTINAL: Abdomen is soft. MUSCULOSKELETAL: No tenderness. No edema. DERMATOLOGIC: No skin rash. NEUROLOGIC: Alert and awake and oriented X3. No focal neurologic deficits. Moving all the extremities. PSYCHIATRIC: Mood and affect normal. LABORATORY DATA: No labs today. ASSESSMENT AND PLAN: 1. End-stage renal disease, on hemodialysis. The patient is having dialysis catheter, which is also ejecting out more than it should be, and plan is to consult Surgery tomorrow. The patient also wanted to get his fistula checked out tomorrow by Surgery. We will have dialysis and vein mapping. 2. Hyperkalemia, better. 3. Hypertension. 4. Hyponatremia. 5. Edema. Plan is to consult Surgery. Continue dialysis Wednesday, , and Wednesday. Job ID: [id number]
[2019-08-27 16:23] LABS: Troponin I 0.053 ng/mL (< 0.028)
--- NOTE | 2019-08-27 20:43 | ULT ---
VASCULAR MAPPING ULTRASOUND OF THE LEFT UPPER EXTREMITY: Date: 08-27-19 History: Replacement fistula for end-stage renal disease. Technique: Multiplanar grayscale sonographic imaging of the vascular structures of the left upper ext remity obtained with color flow and spectral analysis. The radio installer reports that the patient refus ed imaging of the right upper extremity. FINDINGS: Left internal jugular vein, subclavian vein, and axillary vein are patent. There is a fistula at the level of the left wrist which is only partially imaged secondary to bandagi ng material. The imaged portion appears patent but the portion of the fistula proximal to the wrist c annot be assessed. The left brachial artery measures 6.5 mm in transverse dimension and the left ulna r artery measures 1.9 mm in transverse dimension. Left radial artery utilized for the patient's pre-e xisting fistula. LEFT UPPER EXTREMITY: CEPHALIC VEIN Proximal Arm: 3.3 mm Mid Arm: 4.1 mm Distal Arm: 4.4 mm Antecubital Fossa: 5.2 mm Proximal Forearm: 3.0 mm Mid Forearm: 8.5 mm Distal Forearm: 6.3 mm BASILIC VEIN Proximal Arm: 2.2 mm Mid Arm: 3.2 mm Distal Arm: 3.4 mm Antecubital Fossa: 1.4 mm Proximal Forearm: 1.7 mm Mid Forearm: 1.2 mm Distal Forearm: 1.5 mm IMPRESSION: Vascular mapping of the left upper extremity as detailed above. POS: [facility]
--- NOTE | 2019-08-27 21:50 | CON ---
DATE OF CONSULTATION: 08/27/2019 REASON FOR CONSULTATION: Chest burning, murmur, end-stage renal disease, on hemodialysis. HISTORY OF PRESENT ILLNESS: Mr. Freed is a 59-year-old gentleman. The patient was brought here as he had problem with his dialysis access. There was an attempt at placing an access on the left femoral vein, but that was not successful. The patient was having problem with the access site at the right thigh. While the patient has been here, he has had some chest burning. It is in the middle of his chest. He says it seems to be worse when he tries to take a breath. It was an unpleasant sensation. An EKG done did not show any abnormalities. The patient's states he is aware of having a murmur in the past. PAST MEDICAL HISTORY: He has a previous kidney transplant which later failed. Now he is on maintenance hemodialysis. No previous cardiac history. MEDICATIONS: Prior to admission included Renvela, Lactulose, carvedilol, amlodipine. SOCIAL HISTORY: He is currently an inmate in [place] [facility]. REVIEW OF SYSTEMS: CONSTITUTIONAL: No significant weight gain or loss. VISION: No changes. HEARING: No changes. PULMONARY: No cough or wheezing. GASTROINTESTINAL: No nausea, vomiting, diarrhea. SKIN: No rashes. NEUROLOGIC: No unilateral weakness or numbness. PSYCHIATRIC: No unusual depression or anxiety. PHYSICAL EXAMINATION: GENERAL: This is a 59-year-old gentleman, resting comfortably in no distress. VITAL SIGNS: Blood pressure 149/77, pulse 64 and regular. EYES: Sclerae nonicteric. MOUTH: Mucous membranes moist. NECK: Supple. No lymphadenopathy. LUNGS: Clear. CARDIAC: There is a loud murmur. It is loudest at the apex 3/6 to 4/6. There is a holosystolic component at the apex, but there seems to be some component of crescendo/decrescendo also. There is also a systolic murmur at the left upper sternal border. I do not hear a diastolic murmur. ABDOMEN: Soft, nontender. EXTREMITIES: There is a dialysis access site in the right mid thigh. There is a previously attempted placement of a catheter in the left femoral artery that has been repaired. DIAGNOSTIC FINDINGS: The EKG showed normal EKG today. Troponin 0.067 within normal limits on a dialysis patient. Potassium was 7.4, now down to 5.1. ASSESSMENT: 1. Chest pain suspicious for angina. 2. Murmur. It sounds like there is a mitral compound. There may also be an aortic valve component. 3. History of hypertension. 4. End-stage renal disease, needs further attention to access site. PLAN: Echocardiogram to be done. We will need to look at the echo to make sure he does not have severe aortic stenosis before pursuing stress testing. We will recheck it tomorrow. Continue aspirin and p.r.n. nitroglycerin in the meantime. Job ID: [id number] MTDD
[2019-08-27] MEDS: diphenhydrAMINE 25 MG CAP PO PRN (21:57)
[2019-08-27] MEDS: Gabapentin 300 MG CAP PO SCH (23:17)
[2019-08-28] MEDS: Nitroglycerin 0.4 MG TAB (25 Tab Bottle) SL PRN (00:28)
[2019-08-28 08:47] LABS: Hemoglobin 10.5 g/dL (14.0-18.0); Mean Corpuscular Hemoglobin 31.9 pg (27.0-31.0); Mean Corpuscular Volume 96.5 fL (78.0-98.0); Mean Platelet Volume 5.3 fL (7.4-10.4); Platelet Count 161 thou/uL (130-400); RBC Distribution Width 13.7 % (11.5-14.5); Red Blood Cell (RBC) Count 3.31 mill/uL (4.70-6.10); White Blood Cell (WBC) Count 12.6 thou/uL (4.8-10.8)
[2019-08-28 09:05] LABS: Anion Gap 14 mmol/L (10-20); BUN (Urea Nitrogen) 37 mg/dL (8.4-25.7); Calc. Creatinine Clearance 9 mL/min (70-130); Calcium 9.9 mg/dL (7.8-10.44); Carbon Dioxide 30 mmol/L (23-31); Chloride 99 mmol/L (98-107); Estimated GFR-MDRD 5; Glucose 85 mg/dL (80-115); Sodium 137 mmol/L (136-145)
--- NOTE | 2019-08-28 09:11 | PDOC.HOSPP ---
- Subjective Encounter Date: 08/28/19 Encounter Time: 18:00 Subjective: Patient in procedures all day long. Will see tomorrow. - Objective Vital Signs & Weight: Vital Signs (12 hours) Temp Pulse Resp BP Pulse Ox 08/28/19 04:00 98 F 76 18 157/78 H 98 Weight Weight 182 lb 15.739 oz I&O: 08/27/19 08/28/19 08/29/19 06:59 06:59 06:59 Intake Total 730 960 Output Total 1500 Balance -770 960 Result Diagrams: 08/28/19 08:30 08/28/19 08:30 Hospitalist ROS - Medication Medications: Active Medications Generic Name Dose Route Start Last Admin Trade Name Freq PRN Reason Stop Dose Admin Amlodipine Besylate 10 mg 08/26/19 09:00 08/27/19 08:42 Norvasc PO 10 mg DAILY JAYNE Administration Artificial Tears 2 drop 08/27/19 10:19 08/27/19 21:52 Liquitears 15ml Bottle EA EYE 2 drop QID JAYNE Administration Carvedilol 6.25 mg 08/26/19 09:00 08/27/19 21:50 Coreg PO 6.25 mg BID JAYNE Administration Cinacalcet 30 mg 08/26/19 09:00 08/27/19 08:42 Sensipar PO 30 mg DAILY JAYNE Administration Cyanocobalamin 1,000 mcg 08/27/19 09:00 08/27/19 08:44 Vitamin B-12 IM 1,000 mcg Q28D JAYNE Administration Diphenhydramine HCl 25 mg 08/26/19 12:32 08/27/19 21:57 Benadryl PO 25 mg Q6H PRN Administration Anxiety/Restlessness/Sleep Gabapentin 300 mg 08/26/19 21:00 08/27/19 23:17 Neurontin PO Not Given HS JAYNE Heparin Sodium (Porcine) 5,000 units 08/26/19 09:00 08/27/19 23:18 Heparin SC Not Given TID JAYNE Lactulose 20 gm 08/26/19 09:00 08/27/19 23:18 Lactulose PO Not Given BID JAYNE Methylcellulose 1,000 mg 08/26/19 09:00 08/27/19 08:42 Citrucel PO 1,000 mg DAILY JAYNE Administration Nitroglycerin 0.4 mg 08/27/19 10:15 08/28/19 00:28 Nitrostat SL 0.4 mg Q5MIN PRN Administration Chest Pain Pantoprazole Sodium 40 mg 08/26/19 09:00 08/27/19 08:42 Protonix PO 40 mg DAILY JAYNE Administration Sevelamer Carbonate 1,600 mg 08/26/19 17:00 08/27/19 17:13 Renvela PO 1,600 mg TID-WM JAYNE Administration Venlafaxine HCl 75 mg 08/26/19 09:00 08/27/19 08:41 Effexor Xr PO Not Given DAILY JAYNE Hosp A/P - Plan (1) Chest pain - Appreciate Dr. Gomez's imput - ASA, nitro, ECHO showing no CHF or aortic disease (2) Hyperkalemia - Resolved with dialysis, now returning today, needs new catheter (3) Complications, dialysis, catheter, mechanical - Needs new tunnelled HD catheter- place today (4) Eye pain - Eye drops written for (5) Diabetes type 2, controlled (6) Dyslipidemia (7) ESRD (end stage renal disease) on dialysis - Received dialysis over the weekend, needs new catheter (8) GERD (gastroesophageal reflux disease) (9) Hypertension - still running a bit high, likely needs some more volume off once get a cath in place for dialysis
[2019-08-28] MEDS ORDERED: Heparin 10,000 UNITS/1 ML VIAL ONE (09:27)
[2019-08-28 09:54] LABS: Band 2 % (5-11); Eosinophils 23 % (0-10); Lymphocytes 27 % (21-51); MDiff Complete? YES; Monocytes 6 % (0-10); Neutrophil 41 % (42-75); Platelet Morphology Comment Appears Adequate; Polychromasia SLIGHT = 2-3 cells (100X) (0-2/hpf); Reactive Lymphocytes 1 % (0-10)
[2019-08-28] MEDS: Sevelamer Carbonate 800 MG TAB PO SCH ×3 (10:10→17:44)
[2019-08-28] MEDS: Amlodipine 10 MG TAB PO SCH (10:10)
[2019-08-28] MEDS: Artificial Tear Sol 15 ML BOT EA EYE SCH ×4 (10:11→21:31)
[2019-08-28] MEDS: Aspirin Chewable 81 MG TAB PO SCH (10:11)
[2019-08-28] MEDS: Citrucel 500 MG TAB PO SCH (10:11)
[2019-08-28] MEDS: Heparin 5,000 UNITS/ML VIAL SC SCH ×3 (10:12→23:10)
[2019-08-28] MEDS: Venlafaxine HCl XR 75 MG CAP PO SCH (10:12)
[2019-08-28] MEDS: Cinacalcet HCl 30 MG TAB PO SCH (10:12)
[2019-08-28] MEDS: Carvedilol 6.25 MG TAB PO SCH ×2 (10:13→17:44)
--- NOTE | 2019-08-28 12:02 | PRG ---
DATE OF SERVICE: 08/28/2019 SUBJECTIVE: Patient was seen and examined at bedside and overnight events noted. Patient denies any shortness of breath or chest pain or palpitation. No history of nausea or vomiting or diarrhea or fever or chills or cramps. OBJECTIVE: GENERAL: This is a well-built male, in no apparent distress. VITAL SIGNS: Temperature . Heart rate 69. Respiratory rate 16. Blood pressure 164/77. HEENT: Atraumatic, normocephalic. Oral mucosa is moist NECK: Supple. CARDIOVASCULAR: S1, S2 heard. Rate and rhythm regular. RESPIRATORY: Clear to auscultation. GASTROINTESTINAL: Abdomen is soft. MUSCULOSKELETAL: No tenderness. No edema. DERMATOLOGIC: No skin rash. NEUROLOGIC: Alert and awake and oriented X3. No focal neurologic deficits. Moving all the extremities. PSYCHIATRIC: Mood and affect normal. LABORATORY DATA: Potassium 6.0, BUN is 37, and creatinine is 10.3. ASSESSMENT AND PLAN: 1. End-stage renal disease. Continue on dialysis as tolerated. Has hyperkalemia. Today, will have 2 hours of dialysis. 2. Hyperkalemia . 3. Hypertension. 4. Hyponatremia. 5. Edema. Plan to have 2 hours of dialysis today and then TTS as tolerated. We will consult Surgery to figure out the access issues. Job ID: [id number]
[2019-08-28] MEDS ORDERED: ALPRAZolam 0.25 MG TAB PO SCH (12:15)
--- NOTE | 2019-08-28 14:19 | NM ---
EXAM: Nuclear medicine cardiac perfusion examination with ejection fraction HISTORY: Chest pain TECHNIQUE: Rest images: 10.2 mCi technetium 99m sestamibi Stress images: 28 mCi of technetium 9M sestamibi; Lexiscan COMPARISON: None FINDINGS: Tomographic images: No fixed or reversible perfusion defects. Gated images: Normal wall motion and ejection fraction of 50%. EDV: 156 mL LHR: 0.3 TID: 1.0 IMPRESSION: No evidence of ischemia
[2019-08-28] MEDS ORDERED: Regadenoson 0.4 MG/5 ML SYRINGE ONE (16:24)
--- NOTE | 2019-08-28 17:01 | EKG ---
Test Reason : CP Blood Pressure : / mmHG Vent. Rate : 070 BPM Atrial Rate : 070 BPM P-R Int : 156 ms QRS Dur : 098 ms QT Int : 384 ms P-R-T Axes : 071 083 060 degrees QTc Int : 414 ms Normal sinus rhythm Normal ECG When compared with ECG of 27-AUG-2019 10:23, (Unconfirmed) No significant change was found Confirmed by DR. Miriam COSME ([id number]) on 08/28/2019 5:00:50 PM Referred By: LORNA Confirmed By:DR. Miriam COSME
--- NOTE | 2019-08-28 20:45 | PRG ---
DATE OF SERVICE: 08/28/2019 Mr. Freed underwent stress testing today, it showed no ischemia. The echocardiogram showed normal left ventricular function. He does have severe aortic stenosis. It is not critical, however. At some point, the future will likely need surgical therapy on the aortic valve, but it is not essential presently. The patient is cleared to go ahead and get his dialysis access updated. It could be followed back in the present system for the aortic stenosis. There was no ischemia found on stress testing. Some of the chest discomfort he was having earlier could be esophageal reflux. He is on Protonix for that. We will sign off, please re-consult if needed. Job ID: [id number]
[2019-08-28] MEDS: Gabapentin 300 MG CAP PO SCH (23:09)
--- NOTE | 2019-08-29 02:08 | CON ---
DATE OF CONSULTATION: HISTORY OF PRESENT ILLNESS: Tello Freed is a 59-year-old [employer] prisoner who was placed a right femoral vein hemodialysis catheter on 03/27/2019. He has a left Riri fistula. It has been ligated. He has a vein mapping revealing good cephalic vein in the left arm. Unfortunately, he has a right antecubital IV in place. Vein mapping on 03/27/2019 suggested good veins in his right arm and good veins in his left arm. I will place an order to remove his right AC access KERI as this should not be placed in a dialysis patient. ALLERGIES: IODINE, PENICILLIN. TOBACCO: None. ALCOHOL: None. Even prior to incarceration. MEDICATIONS: 1. Zemplar. 2. Omeprazole. 3. Carvedilol. 4. Gabapentin. 5. . 6. Lactulose. 7. Renvela. 8. Claritin. 9. Sensipar. PAST SURGICAL HISTORY: Left Riri fistula, renal transplant, ligation of his fistula, appendectomy, open infraumbilical incision, corneal transplant, right knee surgery. PAST MEDICAL HISTORY: BPH, end-stage renal disease, renal transplant rejection on dialysis, diabetes mellitus, gout, hyperlipidemia, hypertension, neuropathy. PHYSICAL EXAMINATION: VITAL SIGNS: Height 5 foot 9, 182 pounds, 98.6, 69, 164/77. HEAD EARS EYES, NOSE AND THROAT: Unremarkable. LUNGS: Clear to auscultation. CARDIAC: Regular rate and rhythm without murmur or gallop. ABDOMEN: Soft and nontender. EXTREMITIES: Unremarkable. Right AC IV. Right femoral vein dialysis catheter. ASSESSMENT AND PLAN: End-stage renal disease, needs revision of his left arm fistula. We will plan a new left arm fistula more proximally . We will remove his right AC IV as soon as possible as it should not be present. Job ID: [id number]
--- NOTE | 2019-08-29 08:15 | PDOC.HOSPP ---
- Subjective Encounter Date: 08/29/19 Encounter Time: 14:40 Subjective: Patient without complaints. No chest pain currently. No SOB. No abdominal pain. - Objective Vital Signs & Weight: Vital Signs (12 hours) Temp Pulse Resp BP Pulse Ox 08/29/19 03:55 98.3 F 76 20 187/90 H 96 Weight Weight 176 lb 5.917 oz I&O: 08/28/19 08/29/19 08/30/19 06:59 06:59 06:59 Intake Total 960 720 Balance 960 720 Result Diagrams: 08/28/19 08:30 08/28/19 08:30 Additional Labs: Accuchecks 08/28/19 10:51 POC Glucose 87 Hospitalist ROS - Review of Systems Constitutional: denies: fever, chills Respiratory: denies: cough, shortness of breath Cardiovascular: denies: chest pain, palpitations, orthopnea Gastrointestinal: denies: nausea, vomiting, abdominal pain - Medication Medications: Active Medications Generic Name Dose Route Start Last Admin Trade Name Freq PRN Reason Stop Dose Admin Amlodipine Besylate 10 mg 08/26/19 09:00 08/28/19 10:10 Norvasc PO Not Given DAILY [facility] Artificial Tears 2 drop 08/27/19 10:19 08/28/19 21:31 Liquitears 15ml Bottle EA EYE 2 drop QID [facility] Administration Aspirin 324 mg 08/28/19 09:00 08/28/19 10:11 Aspirin Chewable PO Not Given DAILY [facility] Carvedilol 12.5 mg 08/28/19 17:00 08/28/19 17:44 Coreg PO Not Given BID-[facility] Cinacalcet 30 mg 08/26/19 09:00 08/28/19 10:12 Sensipar PO Not Given DAILY [facility] Cyanocobalamin 1,000 mcg 08/27/19 09:00 08/27/19 08:44 Vitamin B-12 IM 1,000 mcg Q28D JAYNE Administration Diphenhydramine HCl 25 mg 08/26/19 12:32 08/27/19 21:57 Benadryl PO 25 mg Q6H PRN Administration Anxiety/Restlessness/Sleep Gabapentin 300 mg 08/26/19 21:00 08/28/19 23:09 Neurontin PO Not Given HS [facility] Heparin Sodium (Porcine) 5,000 units 08/26/19 09:00 12/30/19 23:10 Heparin SC Not Given TID JAYNE Lactulose 20 gm 08/26/19 09:00 08/28/19 23:10 Lactulose PO Not Given BID JAYNE Methylcellulose 1,000 mg 08/26/19 09:00 08/28/19 10:11 Citrucel PO Not Given DAILY JAYNE Nitroglycerin 0.4 mg 08/27/19 10:15 08/28/19 00:28 Nitrostat SL 0.4 mg Q5MIN PRN Administration Chest Pain Pantoprazole Sodium 40 mg 08/26/19 09:00 08/28/19 10:12 Protonix PO Not Given DAILY JAYNE Sevelamer Carbonate 1,600 mg 08/26/19 17:00 08/28/19 17:44 Renvela PO Not Given TID-WM [facility] Venlafaxine HCl 75 mg 08/26/19 09:00 08/28/19 10:12 Effexor Xr PO Not Given DAILY JAYNE - Exam General Appearance: NAD Eye: anicteric sclera ENT: moist mucosa Heart: RRR, no gallops, no rubs, murmur present, III/IV Respiratory: CTAB, no wheezes, no rales, no ronchi Gastrointestinal: soft, non-tender, non-distended, normal bowel sounds Psychiatric: normal affect, normal behavior, A&O x 3 Hosp A/P - Plan (1) Chest pain - Stress test negative, likely GERD vs. musculoskeletal, cardiology signed off - ASA, nitro, ECHO showing no CHF or aortic disease (2) Hyperkalemia - Resolved with dialysis, now returning today, needs new catheter (3) Complications, dialysis, catheter, mechanical - Needs new tunnelled HD catheter- Dr. Bailey working on access issues and plan for revision AV fistula on (4) Eye pain - Eye drops written for (5) Diabetes type 2, controlled (6) Dyslipidemia (7) ESRD (end stage renal disease) on dialysis - Received dialysis over the weekend, needs new catheter (8) GERD (gastroesophageal reflux disease) (9) Hypertension - still running a bit high, will titrate medications
[2019-08-29] MEDS ORDERED: NUTRITIONAL SUPPLEMENT PO SCH (09:00)
[2019-08-29] MEDS: Sevelamer Carbonate 800 MG TAB PO SCH ×3 (09:26→18:07)
[2019-08-29] MEDS: hydrALAZINE 25 MG TAB PO SCH ×3 (09:27→20:42)
[2019-08-29] MEDS: Artificial Tear Sol 15 ML BOT EA EYE SCH ×4 (09:27→20:40)
[2019-08-29] MEDS: Heparin 5,000 UNITS/ML VIAL SC SCH ×3 (09:27→20:40)
--- NOTE | 2019-08-29 10:36 | CON ---
DATE OF CONSULTATION: HISTORY OF PRESENT ILLNESS: A 59-year-old male patient admitted on 08/25/2019 to hospitalist service with diabetes, hypertension, and end-stage renal disease. He is transferred from the [place] [facility]. He is being followed by Dr. Zhao for his chronic kidney disease. Since being in the hospital, he has had a temporary right femoral hemodialysis catheter placed, left hand IV. He has been undergoing dialysis. He had an echocardiogram on 08/27/2019, noting a 60% to 65% ejection fraction, LVH, [id number] tricuspid regurg, markedly increased PA systolic pressure. He underwent a nuclear stress test on 08/28/2019 with normal wall motion and ejection fraction of 50%. No evidence of ischemia. Patient had a fistula in the left wrist which was only partially imaged secondary to bandaging material. Left upper extremity cephalic vein 3.3, 4.1, 4.4, 5.2, 3.0, 8.5 mm, 6.3 mm. Basilic vein 2.2, 3.2, 3.4 mm. Right arm was not evaluated. ALLERGIES: ADHESIVES, IODINE, AND PENICILLIN. SOCIAL HISTORY: Tobacco, none; alcohol, none. MEDICATIONS: 1. Folic acid. 2. Amlodipine. 3. Carvedilol. 4. Gabapentin. 5. Omeprazole. 6. Lactulose. PAST SURGICAL HISTORY: Left arm fistula, Riri; right foot transmetatarsal amputation in the past. Previous ligation, left Riri fistula. PHYSICAL EXAMINATION: VITAL SIGNS: Height 5 feet and 9 inches and weight 182 pounds. HEAD, EARS, EYES, NOSE, AND THROAT: Unremarkable. LUNGS: Clear to auscultation. CARDIAC: Regular rate and rhythm, without murmur or gallop. ABDOMEN: Soft and nontender. EXTREMITIES: Right femoral vein dialysis catheter in place. Left Riri fistula ligated. ASSESSMENT AND PLAN: New left arm fistula, hemodialysis catheter, and central line tomorrow. He understands the risks and benefits, consents. Job ID: [id number]
[2019-08-29] MEDS: Citrucel 500 MG TAB PO SCH (11:47)
[2019-08-29] MEDS: Carvedilol 6.25 MG TAB PO SCH ×2 (11:47→18:06)
[2019-08-29] MEDS: Amlodipine 10 MG TAB PO SCH (11:47)
[2019-08-29] MEDS: Venlafaxine HCl XR 75 MG CAP PO SCH (11:48)
[2019-08-29] MEDS: Aspirin Chewable 81 MG TAB PO SCH (11:48)
[2019-08-29] MEDS: Cinacalcet HCl 30 MG TAB PO SCH (11:49)
[2019-08-29] MEDS: Hydrocerin (Eucerin) Cream 120 gm Jar TOP SCH (11:51)
[2019-08-29] MEDS: Folic Acid/Vit B Comp W-C PO SCH (11:57)
--- NOTE | 2019-08-29 13:28 | PRG ---
DATE OF SERVICE: 08/29/2019 SUBJECTIVE: Patient was seen and examined at bedside and overnight events noted. Patient denies any shortness of breath or chest pain or palpitation. No history of nausea or vomiting or diarrhea or fever or chills or cramps. OBJECTIVE: GENERAL: This is a well-built male, in no acute distress. VITAL SIGNS: Temperature 97.9, pulse 81, respiratory rate 18, blood pressure 150/70. HEENT: Atraumatic, normocephalic. Oral mucosa is moist NECK: Supple. CARDIOVASCULAR: S1, S2 heard. Rate and rhythm regular. RESPIRATORY: Clear to auscultation. GASTROINTESTINAL: Abdomen is soft. MUSCULOSKELETAL: No tenderness. No edema. DERMATOLOGIC: No skin rash. NEUROLOGIC: Alert and awake and oriented X3. No focal neurologic deficits. Moving all the extremities. PSYCHIATRIC: Mood and affect normal. LABORATORY DATA: Labs were done yesterday. No labs today. ASSESSMENT AND PLAN: 1. End-stage renal disease. Continue dialysis as tolerated. Patient had dialysis today. 2. Dialysis access issues, Surgery is being contacted and is following on him. 3. Hyperkalemia. Limit potassium intake. 4. Hyponatremia. 5. Edema. Follow with Surgery for further access plans and we will continue dialysis as tolerated. Job ID: [id number]
[2019-08-29] MEDS: Gabapentin 300 MG CAP PO SCH (20:41)
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
[2019-08-30] MEDS: Sevelamer Carbonate 800 MG TAB PO SCH ×3 (09:45→18:13)
[2019-08-30] MEDS: Carvedilol 6.25 MG TAB PO SCH ×2 (09:46→18:13)
[2019-08-30] MEDS: Folic Acid/Vit B Comp W-C PO SCH (09:46)
[2019-08-30] MEDS: Venlafaxine HCl XR 75 MG CAP PO SCH (09:46)
[2019-08-30] MEDS: Aspirin Chewable 81 MG TAB PO SCH (09:46)
[2019-08-30] MEDS: Artificial Tear Sol 15 ML BOT EA EYE SCH ×3 (09:47→18:14)
[2019-08-30] MEDS: Amlodipine 10 MG TAB PO SCH (09:47)
[2019-08-30] MEDS: Heparin 5,000 UNITS/ML VIAL SC SCH ×3 (09:47→21:22)
[2019-08-30] MEDS: hydrALAZINE 25 MG TAB PO SCH ×3 (09:47→21:24)
[2019-08-30] MEDS: Cinacalcet HCl 30 MG TAB PO SCH (09:47)
[2019-08-30] MEDS: Hydrocerin (Eucerin) Cream 120 gm Jar TOP SCH (09:48)
[2019-08-30] MEDS: Citrucel 500 MG TAB PO SCH (09:49)
[2019-08-30] MEDS: diphenhydrAMINE 25 MG CAP PO PRN (09:55)
--- NOTE | 2019-08-30 13:52 | PRG ---
DATE OF SERVICE: 08/30/2019 SUBJECTIVE: Patient was seen and examined at bedside and overnight events noted. Patient denies any shortness of breath or chest pain or palpitation. No history of nausea or vomiting or diarrhea or fever or chills or cramps. OBJECTIVE: GENERAL: This is a well-built male, in no apparent distress. VITAL SIGNS: Temperature 97.9, pulse 72, , and blood pressure 166/77. HEENT: Atraumatic, normocephalic. Oral mucosa is moist NECK: Supple. CARDIOVASCULAR: S1, S2 heard. Rate and rhythm regular. RESPIRATORY: Clear to auscultation. GASTROINTESTINAL: Abdomen is soft. MUSCULOSKELETAL: No tenderness. No edema. DERMATOLOGIC: No skin rash. NEUROLOGIC: Alert and awake and oriented X3. No focal neurologic deficits. Moving all the extremities. PSYCHIATRIC: Mood and affect normal. LABORATORY DATA: Not done today. ASSESSMENT: 1. End-stage renal disease. Continue on dialysis as tolerated. 2. Hyperkalemia. Limit potassium intake. 3. Hyponatremia. Limit fluid intake. 4. Edema. 5. History of hypertension. 6. Anemia. We will monitor. Plan to continue on dialysis as tolerated. Job ID: [id number]
[2019-08-30 17:32] LABS: Anion Gap 16 mmol/L (10-20); BUN (Urea Nitrogen) 29 mg/dL (8.4-25.7); Calc. Creatinine Clearance 11 mL/min (70-130); Carbon Dioxide 29 mmol/L (23-31); Chloride 95 mmol/L (98-107); Estimated GFR-MDRD 7; Glucose 93 mg/dL (80-115); Potassium 5.5 mmol/L (3.5-5.1); Sodium 134 mmol/L (136-145)
--- NOTE | 2019-08-30 17:52 | PRG ---
DATE OF SERVICE: 08/30/2019 SUBJECTIVE: Tello Freed is a [employer]. His right femoral vein dialysis catheter is working well, however, the cuff is extruded. He has had a previous left arm fistula that was ligated after renal transplant. Unfortunately, his transplant is rejected and he is back on dialysis. IJs are occluded. Previously, he had a right femoral vein hemodialysis catheter placed. ASSESSMENT: 1. Malposition of right femoral vein dialysis catheter. We will plan replacement tomorrow. 2. Needs long-term dialysis access. PLAN: Left arm fistula ultrasound vein mapping reveals that he has good veins for such. We will plan this in the morning. Postprocedure, the patient can be discharged to detention tomorrow. Job ID: [id number]
[2019-08-30] MEDS: Gabapentin 300 MG CAP PO SCH (21:22)
[2019-08-31] MEDS: Artificial Tear Sol 15 ML BOT EA EYE SCH ×2 (00:29→08:13)
[2019-08-31 01:19] VITALS: TEMP 98.6
[2019-08-31] MEDS: Carvedilol 6.25 MG TAB PO SCH ×2 (06:18→08:12)
[2019-08-31 06:19] VITALS: BP 176/74
[2019-08-31] MEDS ORDERED: Lidocaine 1% w/Epinephrine 1:100K 20 ML VIAL ONE (06:44)
[2019-08-31] MEDS ORDERED: Heparin 10,000 UNITS/1 ML VIAL ONE (06:44)
[2019-08-31] MEDS ORDERED: Heparin 5,000 UNITS/ML VIAL ONE (06:44)
[2019-08-31] MEDS ORDERED: Protamine Sulfate 50 MG/5 ML VIAL ONE (06:44)
[2019-08-31] MEDS ORDERED: Sodium Chloride 0.9% 20 ML ONE ×2 (06:44→06:55)
[2019-08-31] MEDS ORDERED: Protamine Sulfate 250 MG/25 ML VIAL ONE (06:44)
[2019-08-31] MEDS ORDERED: Bupivacaine PF 0.5% 30 ML VIAL ONE (06:44)
[2019-08-31] MEDS ORDERED: Midazolam HCl 2 mg/2 ml Vial ONE (06:48)
[2019-08-31] MEDS ORDERED: Fentanyl 100 MCG/2 ML VIAL ONE ×2 (06:48→07:05)
[2019-08-31] MEDS ORDERED: Propofol 500 MG/50 ML VIAL ONE (07:05)
[2019-08-31] MEDS ORDERED: PROPOFOL 200 MG/20 ML VIAL ONE (07:50)
[2019-08-31] MEDS ORDERED: Ondansetron PF 4 MG/2 ML Vial ONE (07:50)
[2019-08-31] MEDS ORDERED: PHENYLEPHRINE-NS 100 MCG/ML 10 ML SYRINGE ONE (07:50)
[2019-08-31] MEDS ORDERED: Lidocaine 1% PF 5 ML VIAL ONE (07:50)
[2019-08-31] MEDS ORDERED: ePHEDrine/0.9% NaCl/PF SYRINGE 50 mg/10 ml ONE (07:50)
[2019-08-31] MEDS ORDERED: Levofloxacin 500 mg/D5W 100 ml Premix Bag ONE (08:05)
[2019-08-31] MEDS: Aspirin Chewable 81 MG TAB PO SCH (08:13)
[2019-08-31] MEDS: Amlodipine 10 MG TAB PO SCH (08:13)
[2019-08-31] MEDS: Sevelamer Carbonate 800 MG TAB PO SCH (08:13)
[2019-08-31] MEDS ORDERED: traMADol HCl 50 MG TAB PO PRN ×2 (08:14→09:45)
[2019-08-31] MEDS ORDERED: Acetaminophen 500 MG TAB PO PRN (08:14)
[2019-08-31] MEDS: Citrucel 500 MG TAB PO SCH (08:14)
[2019-08-31] MEDS: Cinacalcet HCl 30 MG TAB PO SCH (08:16)
[2019-08-31] MEDS: Folic Acid/Vit B Comp W-C PO SCH (08:16)
[2019-08-31] MEDS: Heparin 5,000 UNITS/ML VIAL SC SCH (08:17)
[2019-08-31] MEDS: hydrALAZINE 25 MG TAB PO SCH (08:17)
[2019-08-31] MEDS: Hydrocerin (Eucerin) Cream 120 gm Jar TOP SCH (08:17)
[2019-08-31] MEDS: Venlafaxine HCl XR 75 MG CAP PO SCH (08:18)
--- NOTE | 2019-08-31 09:02 | PDOC.HOSPP ---
- Subjective Encounter Date: 08/31/19 - Objective Vital Signs & Weight: Vital Signs (12 hours) Temp Pulse Resp BP BP Pulse Ox 08/31/19 08:17 176/74 H 08/31/19 08:13 176/74 H 08/31/19 08:12 176/74 H 08/31/19 06:18 176/74 H 08/31/19 00:00 98.6 F 73 16 142/65 H 96 08/30/19 21:24 150/75 H Weight Weight 183 lb 10.321 oz I&O: 08/30/19 08/31/19 09/01/19 06:59 06:59 06:59 Intake Total 960 1020 Output Total 3500 Balance -2540 1020 Result Diagrams: 08/28/19 08:30 08/30/19 17:06 Hospitalist ROS - Medication Medications: Active Medications Generic Name Dose Route Start Last Admin Trade Name Freq PRN Reason Stop Dose Admin Amlodipine Besylate 10 mg 08/26/19 09:00 08/31/19 08:13 Norvasc PO Not Given DAILY [facility] Artificial Tears 2 drop 08/27/19 10:19 08/31/19 08:13 Liquitears 15ml Bottle EA EYE Not Given QID [facility] Aspirin 324 mg 08/28/19 09:00 08/31/19 08:13 Aspirin Chewable PO Not Given DAILY [facility] Carvedilol 12.5 mg 08/28/19 17:00 08/31/19 08:12 Coreg PO Not Given BID-WM [facility] Cinacalcet 30 mg 08/26/19 09:00 08/31/19 08:16 Sensipar PO Not Given DAILY [facility] Cyanocobalamin 1,000 mcg 08/27/19 09:00 08/27/19 08:44 Vitamin B-12 IM 1,000 mcg Q28D JAYNE Administration Diphenhydramine HCl 25 mg 08/26/19 12:32 08/30/19 09:55 Benadryl PO 25 mg Q6H PRN Administration Anxiety/Restlessness/Sleep Emollient Cream 0 gm 08/29/19 09:00 08/31/19 08:17 Hydrocerin Cream TOP Not Given DAILY JAYNE Gabapentin 300 mg 08/26/19 21:00 08/30/19 21:22 Neurontin PO Not Given HS [facility] Heparin Sodium (Porcine) 5,000 units 08/26/19 09:00 08/31/19 08:17 Heparin SC Not Given TID JAYNE Hydralazine HCl 25 mg 08/29/19 09:00 08/31/19 08:17 Apresoline PO Not Given TID JAYNE Lactulose 20 gm 08/26/19 09:00 08/31/19 08:17 Lactulose PO Not Given BID JAYNE Methylcellulose 1,000 mg 08/26/19 09:00 08/31/19 08:14 Citrucel PO Not Given DAILY JAYNE Nitroglycerin 0.4 mg 08/27/19 10:15 08/28/19 00:28 Nitrostat SL 0.4 mg Q5MIN PRN Administration Chest Pain Pantoprazole Sodium 40 mg 08/26/19 09:00 08/31/19 08:17 Protonix PO Not Given DAILY JAYNE Sevelamer Carbonate 1,600 mg 08/26/19 17:00 08/31/19 08:13 Renvela PO Not Given TID-WM JAYNE Tolnaftate 0 gm 08/29/19 09:00 08/31/19 08:18 Tinactin 1% Cream TOP Not Given BID JAYNE Venlafaxine HCl 75 mg 08/26/19 09:00 08/31/19 08:18 Effexor Xr PO Not Given DAILY [facility] Vitamin B Complex/Vit C/Folic Acid 1 tab 08/29/19 09:00 08/31/19 08:16 Nephro-Anil Tablet PO Not Given DAILY [facility] Hosp A/P - Plan (1) Chest pain -resolved - Stress test negative, likely GERD vs. musculoskeletal, cardiology signed off - ASA, nitro, ECHO showing no CHF or aortic disease (2) Hyperkalemia - Resolved with dialysis (3) Complications, dialysis, catheter, mechanical - Needs new tunnelled HD catheter- Dr. Bailey working on access issues and plan for revision AV fistula on (4) Eye pain - Eye drops written for (5) Diabetes type 2, controlled (6) Dyslipidemia (7) ESRD (end stage renal disease) on dialysis - Received dialysis over the weekend, needs new catheter, placement today with new AV fistula (8) GERD (gastroesophageal reflux disease) (9) Hypertension - better with hydralazine Discharge back to retirement today after procedures by Dr. Bailey
[2019-08-31] MEDS ORDERED: Norepinephrine 4 MG/4 ML VIAL ONE (09:49)
--- NOTE | 2019-08-31 09:52 | OP ---
DATE OF PROCEDURE: 08/31/2019 PREOPERATIVE DIAGNOSES: 1. End-stage renal disease. 2. Internal jugular vein thrombosis. 3. Dislodged malposition right femoral vein cuffed tunneled hemodialysis catheter, cuff extruded. 4. Previous ligation of left Riri fistula. 5. Transplant rejection. POSTOPERATIVE DIAGNOSES: 1. End-stage renal disease. 2. Internal jugular vein thrombosis. 3. Dislodged malposition right femoral vein cuffed tunneled hemodialysis catheter, cuff extruded. 4. Previous ligation of left Riri fistula. 5. Transplant rejection. PROCEDURES PERFORMED: 1. Left arm primary fistula proximal radial artery of excellent caliber, outflow perforating branch antecubital vein, cephalic vein with preservation of the retrograde antecubital vein. No communication in basilic vein appreciated. 2. Removal of old right femoral vein cuffed tunneled dialysis catheter. 3. Placement of a new right femoral vein cuffed tunneled dialysis catheter. ANESTHESIA: General and local with 0.5% Marcaine 30 mL mixed with 1% Xylocaine with epinephrine 30 mL. DESCRIPTION OF PROCEDURE: The patient was taken to the operating room, where under general anesthesia, left upper extremity, groin, and right thigh were prepared with Betadine and draped in routine fashion. Incision was made in the proximal volar forearm longitudinally, carried out to skin and subcutaneous tissue below the antecubital fossa, dissected the brachial, radial, and ulnar arteries free. Small branches were clipped. Antecubital vein identified. Perforating branch dissected free and branches were divided between clips and 4-0 silk ties, spatulated over branch point and the patient given 6000 units of heparin intravenously. Coronary dilators from 2 mm to 4 mm passed out the perforating branch cephalic vein outflow without obstruction. It passed easily, was flushed with heparinized saline solution. An atraumatic bulldog clamp was applied. Brachial, radial, and ulnar arteries clamped and a longitudinal arteriotomy made in the proximal radial artery and a 2 cm anastomosis was made between the perforating branch and antecubital vein to the proximal radial artery with continuous suture of 6-0 Prolene, releasing the clamps, good hemostasis with 6-0 Prolene and 4-0 silk ties. Good hemostasis noted. The patient was given 25 mg of protamine intravenously. Subcutaneous tissue was approximated with 3-0 Monocryl, skin with subdermal 4-0 Monocryl and [place] glue applied. Local anesthetic infiltrated in the operative site for postoperative pain control. Incision was made in the right groin overlying the catheter. Catheter dissected free and clamped proximally and distally, divided, and the J-wire threaded. A new exit site stab incision made and tunneling device was used to tunnel the new catheter from the new access site, placed the cuff just beneath the catheter exit site and catheter secured with 2 interrupted sutures of 3-0 nylon. Sterile dressings applied. Dilator and Peel-Away sheath placed over the J-wire into the femoral vein. Dilator and J-wire removed. Catheter was placed with a Peel-Away sheath. Peel-away sheath removed. Fluoroscopically, catheter noted to be in good position. Subcutaneous tissue was approximated with 4-0 Monocryl, skin with subdermal 4-0 Monocryl, and [place] glue applied. Each port aspirated blood, flushed with injectable saline and heparinized saline solution with 1000 units of heparin per mL, indicating volume of the port. Job ID: [id number]
[2019-08-31 10:05] LABS: #Basophils 0.1 thou/uL (0.0-0.2); #Eosinphils 3.8 thou/uL (0.0-0.7); #Lymphocytes 4.5 thou/uL (1.20-3.40); #Monocytes 1.1 thou/uL (0.11-0.59); #Neutrophils 6.3 thou/uL (1.40-6.50); %Basophils 0.8 % (0.0-1.0); %Eosinophils 23.9 % (0.0-10.0); %Lymphocytes 28.5 % (21.0-51.0); %Monocytes 6.7 % (0.0-10.0); %Neutrophils 40.1 % (42.0-75.0); Mean Corpuscular HGB CONC 31.7 g/dL (32.0-36.0); Mean Corpuscular Hemoglobin 30.5 pg (27.0-31.0); Mean Corpuscular Volume 96.3 fL (78.0-98.0); Mean Platelet Volume 6.1 fL (7.4-10.4); Platelet Count 186 thou/uL (130-400); RBC Distribution Width 13.4 % (11.5-14.5); Red Blood Cell (RBC) Count 2.95 mill/uL (4.70-6.10); White Blood Cell (WBC) Count 15.7 thou/uL (4.8-10.8)
[2019-08-31] MEDS ORDERED: Sodium Bicarb 50 MEQ/50 ML Abboject 8.4% SYRINGE ONE (10:07)
[2019-08-31 10:11] LABS: INR-International Normal Ratio 1.3; Prothrombin Time 16.2 SEC (12.0-14.7)
[2019-08-31 10:15] LABS: Anion Gap 15 mmol/L (10-20); BUN (Urea Nitrogen) 39 mg/dL (8.4-25.7); Calc. Creatinine Clearance 10 mL/min (70-130); Carbon Dioxide 25 mmol/L (23-31); Chloride 99 mmol/L (98-107); Estimated GFR-MDRD 6; Sodium 132 mmol/L (136-145)
[2019-08-31 10:16] LABS: ALT (SGPT) 22 U/L (8-55); AST (SGOT) 24 U/L (5-34); Albumin 3.4 g/dL (3.4-4.8); Alkaline Phosphatase 74 U/L (40-110); Bilirubin, Total 0.5 mg/dL (0.2-1.2); Calcium 9.1 mg/dL (7.8-10.44); Globulin 3.2 g/dL (2.4-3.5); Glucose 88 mg/dL (80-115); Protein, Total 6.6 g/dL (5.8-8.1)
[2019-08-31 10:19] LABS: Potassium 7.2 mmol/L (3.5-5.1)
[2019-08-31 10:33] LABS: PTT Greater than 250.0 SEC (22.9-36.1)
--- NOTE | 2019-08-31 12:07 | PRG ---
DATE OF SERVICE: 08/31/2019 Mr. Freed underwent placement of a left arm fistula and removal of his old hemodialysis catheter and placement of a new one this morning. Intraoperatively, he did well. There was no appreciable blood loss. No events in the operating room out of the ordinary. Postoperatively, in the recovery room, the patient developed an arrhythmia, ventricular fibrillation, CPR was initiated, the patient was coded. He was intubated, continued blood gases revealed that he is hyperkalemic even though his potassium is 5.5 yesterday and he dialyzed yesterday, but this potassium was on a blood gas drawn during the code. The patient was given calcium bicarbonate, resuscitated with multiple doses of epinephrine and defibrillation shocks. After more than 30 minutes without any cardiac response, the patient was pronounced . The patient had a cardiac stress test prior to this operation. His ejection fraction, cardiac, was acceptable. Cause of is most likely a cardiac event. No intraoperative occurrences out of the ordinary occurred to precipitate this event. Job ID: [id number]
--- NOTE | 2019-08-31 17:14 | PDOC.EVN ---
Event Note - Event Note Event Note: Summary Dictated #[id number]
--- NOTE | 2019-08-31 18:00 | DIS ---
DATE OF ADMISSION: 08/26/2019 DATE OF DISCHARGE: 08/31/2019 REASON FOR ADMISSION: Volume overload, hyperkalemia, and adequate dialysis access. CAUSE OF : End-stage renal disease leading to hyperkalemia and cardiac arrest. CONTRIBUTING CAUSES: 1. Diabetes mellitus type 2. 2. Hypertension. CONSULTATIONS: 1. Nephrology, Dr. Zhao. 2. Cardiology, Dr. Gomez. 3. General Surgery, Dr. Bailey. SUMMARY OF HOSPITAL COURSE: This is a 59-year-old male with a history of diabetes, hypertension, end-stage renal disease on dialysis. He had had a cuffed dialysis catheter placed previously that was dislodged, presently it was not working well. He had refused multiple attempts to have it changed down or have him sent to the ER eventually after almost a week of no dialysis. He agreed to go to the emergency room. There, he was found to have hyperkalemia and peaked T- waves on his EKG. The patient had treatment done in the emergency room and then had dialysis through his old line after failed attempt in the ER to place a new line in his left groin. They were able to use it at a very slow rate and we were able to get his potassium down to normal. The patient then felt much better. He had some indeterminate troponins and elevated blood pressure and so he had a nuclear stress test done in the hospital, which was negative. Dr. Bailey with Surgery was consulted for placement of a new cuffed dialysis catheter and AV fistula. The patient did have dialysis 2 days prior to his . His last potassium was done yesterday and was 5.5. He was refusing blood draws multiple times throughout his hospitalization; however, so these were only done intermittently. On the day of his , he did go for Surgery. He had his cuffed hemodialysis catheter placed and AV fistula without complication. He was brought to the recovery room, however, in the recovery room the patient rested. He had code blue called and ACLS was begun. A blood drawn during the arrest showed a potassium of 7.2, which was still below the potassium on his admission. He had ACLS performed for 30 minutes with no return of pulse and was asystolic. An ultrasound was done which confirmed no cardiac activity and so the code was called. Time of , 1010 hours on 08/31/2019. Per TD request, he is having an autopsy done. The results are not available at this time. Job ID: [id number] [facility]
--- NOTE | 2019-09-01 11:05 | EKG ---
Test Reason : CP Blood Pressure : / mmHG Vent. Rate : 072 BPM Atrial Rate : 072 BPM P-R Int : 150 ms QRS Dur : 100 ms QT Int : 388 ms P-R-T Axes : 076 093 069 degrees QTc Int : 424 ms Normal sinus rhythm Non-specific intra-ventricular conduction delay Rightward axis Abnormal ECG Confirmed by PRINCESS DURANT ([id number]) on 09/01/2019 11:04:57 AM Referred By: NI Confirmed By:PRINCESS DURANT
== END 2019-08-31 10:10 | disposition expired | DRG 628 ==
LOC: ERS 15:36 → 2NO 08-26 00:12 → T4-B 08-30 19:45
PROVIDERS: ADMIT Emergency Medicine; ATTEND Emergency Medicine
PROC: 031C3ZF Bypass Left Radial Artery to Lower Arm Vein, Percutaneous Approach (ICD-10-PCS; principal; 2019-08-31)
PROC: 06PY33Z Removal of Infusion Device from Lower Vein, Percutaneous Approach (ICD-10-PCS; 2019-08-31)
PROC: 0JHL3XZ Insertion of Tunneled Vascular Access Device into Right Upper Leg Subcutaneous Tissue and Fascia, Percutaneous Approach (ICD-10-PCS; 2019-08-31)
PROC: 06HM33Z Insertion of Infusion Device into Right Femoral Vein, Percutaneous Approach (ICD-10-PCS; 2019-08-31)
PROC: 5A12012 Performance of Cardiac Output, Single, Manual (ICD-10-PCS; 2019-08-31)
DX: E87.5 Hyperkalemia (principal); N18.6 End stage renal disease; T82.42XA Displacement of vascular dialysis catheter, initial encounter; Z94.0 Kidney transplant status; I12.0 Hypertensive chronic kidney disease with stage 5 chronic kidney disease or end stage renal disease; T86.11 Kidney transplant rejection; I82.C19 Acute embolism and thrombosis of unspecified internal jugular vein; E87.1 Hypo-osmolality and hyponatremia; E11.22 Type 2 diabetes mellitus with diabetic chronic kidney disease; E78.5 Hyperlipidemia, unspecified; N40.0 Benign prostatic hyperplasia without lower urinary tract symptoms; H57.10 Ocular pain, unspecified eye; K21.9 Gastro-esophageal reflux disease without esophagitis; Y83.8 Other surgical procedures as the cause of abnormal reaction of the patient, or of later complication, without mention of misadventure at the time of the procedure; R07.9 Chest pain, unspecified; R01.1 Cardiac murmur, unspecified; D64.9 Anemia, unspecified; Y83.0 Surgical operation with transplant of whole organ as the cause of abnormal reaction of the patient, or of later complication, without mention of misadventure at the time of the procedure; I49.01 Ventricular fibrillation; I46.9 Cardiac arrest, cause unspecified; Z99.2 Dependence on renal dialysis; Z90.49 Acquired absence of other specified parts of digestive tract; Z88.0 Allergy status to penicillin; Z79.899 Other long term (current) drug therapy; Z91.19 Patient's noncompliance with other medical treatment and regimen
CPT/HCPCS: 36415; 36416; 71045; 78452; 80048; 80053; 83735; 84484; 85025; 85610; 85730; 87040; 90935; 93005; 93010; 93017; 93306; 93970; 94640; 94644; 96374; 96375; A9500; C1752; G0257; G0365; J0171; J0280; J1642; J1644; J1815; J1956; J2001; J2250; J2405; J2704; J2720; J2785; J3010; J3420; J7611; J7620; Q0163; S0020